=== PATIENT | female | born 1950 | race Caucasian/White ===

== ENCOUNTER 2020-02-04 00:07 | Inpatient (IN) | payer MEDICARE, MEDICAID, SELFPAY ==
[2020-02-04] VITALS (16 sets, daily range): BP systolic 107–137; BP diastolic 56–79; PULSE 76–118; RESP 10–22; TEMP 35.7–36.6; O2SAT 90–97; BMI 26.7
--- NOTE | 2020-02-04 00:37 | ECG_ITS ---
[facility] Test Date: 2020-02-04 Pat Name: Dee Ferreira Department: Room: 104 Gender: Female Teacher Instrumental: : 1950 Requested By: Brittany Hunt Order Number: [id number] Reading MD: BRITTANY GOODWIN Measurements Intervals [place] Rate: 86 P: VT: QRS: 74 QRSD: 93 T: -70 QT: 301 QTc: 362 Interpretive Statements SUPRAVENTRICULAR RHYTHM LOW QRS VOLTAGE IN EXTREMITY LEADS [QRS DEFLECTION < 0.5 mV IN LIMB LEADS] SEPTAL MYOCARDIAL INFARCTION [40+ ms Q WAVE IN V1/V2], PROBABLY OLD MODERATE T-WAVE ABNORMALITY, CONSIDER INFERIOR ISCHEMIA [-0.1+ mV T WAVE IN II/aVF] WARNING: DATA QUALITY MAY AFFECT INTERPRETATION No previous ECG available for comparison Electronically Signed On 02-04-2020 20:14:01 ARMHOLE PRESSER by BRITTANY GOODWIN [id number]
--- NOTE | 2020-02-04 00:48 | USCV_ITS ---
Dee Ferreira Age: 69 Gender: F : 1950 Exam Date: 02/04/2020 06:28 Ordering Phys: Brittany Hunt MD Technologist: Kim Stroud Exam Location: [facility] [place] Indication: Atrial fibrillation with RVR BP: 124 / 79 HR: 102 Rhythm: Sinus Technical Quality: Technically difficult study MEASUREMENTS (Male / Female) Normal Values 2D ECHO LV Diastolic Diameter PLAX 2.8 cm 4.2 - 5.9 / 3.9 - 5.3 cm LV Systolic Diameter PLAX 1.7 cm LV Chamber Size 3.3 cm IVS Diastolic Thickness 1.7 cm 0.6 - 1.0 / 0.6 - 0.9 cm IVS Systolic Thickness 1.3 cm LVPW Diastolic Thickness 1.2 cm 0.6 - 1.0 / 0.6 - 0.9 cm LVPW Systolic Thickness 2.1 cm RV Chamber Size 4.6 cm LVOT Diameter 2.0 cm LV Ejection Fraction 2D Teich 68.6 % LA Diameter 3.8 cm LA Width 3.6 cm LA Height 5.8 cm RA Width 3.3 cm RA Height 5.0 cm Aorta at Sinotubular Diameter 2.8 cm M-MODE LV Diastolic Diameter MM 3.3 cm 4.2 - 5.9 / 3.9 - 5.3 cm LV Systolic Diameter MM 2.0 cm LV Ejection Fraction MM Teich 71.3 % IVS Diastolic Thickness MM 1.1 cm 0.6 - 1.0 / 0.6 - 0.9 cm IVS Systolic Thickness MM 1.4 cm LVPW Diastolic Thickness MM 0.9 cm 0.6 - 1.0 / 0.6 - 0.9 cm LVPW Systolic Thickness MM 1.8 cm RV Diastolic Diameter MM 3.3 cm Aortic Annulus Diameter 2.7 cm LA Ao Ratio MM 1.9 MV E Point Septal Separation 0.7 cm DOPPLER AV Peak Velocity 117.7 cm/s LVOT Peak Velocity 63.0 cm/s AV Area Cont Eq vti 1.8 cm squared AV Area Cont Eq pk 1.7 cm squared MV Area PHT 5.0 cm squared MV E' Velocity 121.0 cm/s TR Peak Velocity 233.1 cm/s TR Peak Gradient 21.7 mmHg TR Mean Velocity 170.2 cm/s TR Mean Gradient 11.9 mmHg TR Velocity Time Integral 53.9 cm TV Peak E Velocity 77.0 cm/s Right Atrial Pressure 15.0 mmHg Pulmonary Artery Systolic Pressu 36.7 mmHg PV Peak Velocity 53.0 cm/s RV Acceleration Time 0.1 s RV Ejection Time 0.2 s RV AcT/ET 0.3 FINDINGS Left Ventricle Normal left ventricular cavity size. Normal left ventricular wall thickness. Normal left ventricular systolic function. Left ventricular ejection fraction is estimated at 55 %. Flattened septum in diastole consistent with right ventricle volume overload. In the presence of atrial fibrillation diastolic function cannot be assessed accurately. Right Ventricle Moderately increased right ventricular size. Moderately decreased right ventricular systolic function. Moderate pulmonary hypertension, PASP 50 mmHg. Right Atrium Moderately increased right atrial size. Left Atrium Moderately increased left atrial size. Mitral Valve Moderately thickened mitral valve. Moderate mitral annular calcification. No mitral valve stenosis. Moderate mitral valve regurgitation. Aortic Valve Severe aortic valve calcification. Moderate aortic valve stenosis, mean gradient 3.6 mmHg, TONI 1.8 no aortic valve regurgitation. cm squared. No aortic valve regurgitation. Tricuspid Valve Severe tricuspid valve regurgitation. Pulmonic Valve Moderate pulmonary valve regurgitation. Pericardium Normal pericardium without effusion. Aorta Normal ascending aorta dimension. CONCLUSIONS 1-Normal left ventricular cavity size. Normal left ventricular wall thickness. Normal left ventricular systolic function. Left ventricular ejection fraction is estimated at 55 %. Flattened septum in diastole consistent with right ventricle volume overload. In the presence of atrial fibrillation diastolic function cannot be assessed accurately. 2-Moderately increased right ventricular size. Moderately decreased right ventricular systolic function. Moderate pulmonary hypertension, PASP 50 mmHg. 3-Moderate biatrial enlargement 4-Moderately thickened mitral valve. Moderate mitral annular calcification. No mitral valve stenosis. Moderate mitral valve regurgitation. 5-Severe aortic valve calcification. Moderate aortic valve stenosis, mean gradient 3.6 mmHg, TONI 1.8 no aortic valve regurgitation. cm squared. No aortic valve regurgitation. 6-Severe tricuspid valve regurgitation. 7-Moderate pulmonary valve regurgitation. 8-There is no pericardial effusion. 9-Right atrial pressure is around 20 mm of mercury. 10-There are no prior echocardiogram studies to compare. Brittany Swan MD (Electronically Signed) Final Date: 04 February 2020 16:46 S
--- NOTE | 2020-02-04 00:48 | PM.HP ---
Providers/Chief Complaint Admitting Physician: Brittany Hunt MD History of Present Illness Dee Ferreira is a 69 year old female who carries history of chronic kidney disease stage V hemodialysis dependent Wednesday, diabetes, hypertension, presented to the hospital for chief complaint of shortness of breath. Patient went to [facility] for her complaints. Today she had 1-1/2-hour dialysis session. At care home her blood pressure was found to be in 70s, nurse and staff noticed coarse crackles on lung auscultation and sent her to the ER. In the emergency department she was given 1 L normal saline bolus which improved her blood pressure to 100 110 mmhg, she was found to have new onset A. fib RVR maximal heart rate 150, she was put on Cardizem drip after normal saline bolus which improved her heart rate to range of 70-80. She was tested positive for COVID-19. Hospital did not have isolated COVID-19 patient room hence she was transferred to our facility. Of note, patient is taking clonidine, lisinopril and Lasix, does not make urine. Lactic acid 2.0, reflex lactic acid 1.6 after fluid resuscitation EKG showed T wave inversion lead II, III, aVF patient did not complain of any chest pain White count 6 hemoglobin 10.6 Sodium 134 potassium 3.8 Creatinine 3 Blood glucose 160 BNP 854 Troponin T 0.17 COVID-19 positive Chest did not show pulmonary edema She was started on heparin drip for A. fib RVR UA did not show any pyuria Patient was evaluated on arrival, she was not complaining of any active chest pain or shortness of breath she was desaturating 88 to 89% on room air, she was put on 3 L nasal cannula which improved her oxygenation, her labs and chart were reviewed, patient is not a good historian I started her on Cardizem drip as her heart rate was fluctuating between 110s to 140, systolic blood pressure was 120mmhg No active complaint Heparin drip was turned off Review of Systems Const: Reports: chills and fatigue; Denies: fever(s) Eyes: Denies: change in vision ENMT: Denies: throat pain Card: Denies: chest pain Resp: Denies: dyspnea GI: Denies: abdominal pain : Denies: flank pain Musc: Reports: muscle cramps Skin/Breast: Reports: lesions Neuro: Reports: headache(s) Psych: Denies: anxiety Endo: Denies: polyuria Arnold/Lymph: Denies: easy bruising All/Imm: Denies: urticaria Medications/Allergies Allergies Allergy/AdvReac Type Severity Reaction Status Date / Time Penicillins Allergy ALGY-Anaphy Verified 02/04/20 00:50 laxis PFSH Acute PFSH: Medical History (Updated 02/04/20 @ 01:00 by Brittany Hunt MD) AV fistula COPD (chronic obstructive pulmonary disease) 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 Diabetes Dialysis patient End stage renal disease Hypertension Surgical History (Updated 02/04/20 @ 01:00 by Brittany Hunt MD) No pertinent past surgical history Family History (Updated 02/04/20 @ 01:00 by Brittany Hunt MD) Other Family history non-contributory Social History (Updated 02/04/20 @ 00:59 by Brittany Hunt MD) Smoking and tobacco status: current some day smoker Alcohol intake: never Substance/Drug Use: never Housing: [facility] Physical Exam Narrative: EXAM NARRATIVE: Obese female currently sitting in semi-Li position saturating 92% on 3 L nasal cannula systolic blood pressure 120 Has cushingoid appearance No active chest pain or respiratory distress Patient has hearing impairment Has facial flushing, Clinically looks fluid overloaded with bilateral lower extremity edema, 1+ Bibasilar crackles noted, no active wheezing, no acute respiratory distress S1, S2 variable no murmur appreciated Abdomen soft, distended bowel sound present Patient seems to be very drowsy Awake alert oriented x3 GCS 15 No neurological deficit Facial flushing noted Left arm fistula A&P Assessment and plan (1) COVID-19: Status: Acute (2) Acute respiratory failure with hypoxia: Status: Acute (3) New onset a-fib: Status: Acute Additional A&P Information Acute hypoxic resp failure secondary to COVID-19 pneumonia Start Decadron and remdesivir Currently doing well on 3 L nasal cannula saturating 92% Procalcitonin not high She is not septic Chest x-ray from the other facility did not report any consolidation Ventolin every 4 as needed New onset A. Fibrillation with acute RVR Heart rate 140s systolic blood pressure 120s, start Cardizem drip start Eliquis discontinue heparin Her BNP was 875, troponin T 0.17, will get baseline troponin here, EKG did not reveal any ischemic or infarctive change At home she is taking Lasix 80 mg, but patient is endorsing anuria Echo in the morning This most likely related to COVID-19 infection, check inflammatory markers End-stage renal disease Hemodialysis dependent Wednesday Current creatinine 3, no acute indication for dialysis, Kindly consult nephro on Wednesday Her hypotensive episode most likely was due to the effect of dialysis which improved with 1 L fluid resuscitation at the [place] [facility] her lactic acid improved as well from 2-1.6 Full code DVT prophylaxis not needed currently on Eliquis Renal diet Attestations Medical Necessity Statement*: She might get discharged in less than 48 hours currently need echo to see any wall motion abnormality for new onset A. fib RVR, requiring oxygen for COVID-19 pneumonia Time Spent in Patient Care: (>than 50% of time spent in counselling and/or direct pt care on unit). 50mins Coding Level of Care Code Acute Logistics Manager for Clarence Quinonez Diagnoses COVID-19 U07.1 Acute respiratory failure with hypoxia J96.01 New onset a-fib I48.91
[2020-02-04] MEDS: oxyCODONE 5 mg IR Tab/Cap PO ×2 (01:22→17:19)
[2020-02-04] MEDS: remdesivir 200 MG in sodium chloride 0.9% (100 ml) 100 ML 100 MG IV (01:22)
[2020-02-04] MEDS: albuterol 8 gm MDI 2 PUFF INHALATION ×3 (01:40→19:36)
--- NOTE | 2020-02-04 01:48 | PC.NURSE ---
Patient arrived to floor at 0010 via stretcher as direct admit from [facility]. Telemetry applied. Patient currently in afib with rate at 120s. Patient is Covid 19 positive. SpO2 at 78% on room air at arrival. Placed patient on 2L NC which increased SpO2 to 93-95%. Informed Dr Hunt of patient's arrival to the floor. Patient c/o headache and body aches. All medications administered as ordered. Patient is a dialysis patient with fistula in the left arm. Patient's last dialysis was 02/03/20 am. Patient requesting something eat which Jello was provided per patient choice.
[2020-02-04 01:52] LABS: Troponin T (5th) Once 177 ng/L (0-10)
[2020-02-04 01:59] LABS: Magnesium 2.1 mg/dL (1.7-2.3); Thyroid Stimulating Hormone 1.64 uIU/mL (0.27-4.20)
[2020-02-04 02:02] LABS: D Dimer 2.04 ug/mIFEU (0-0.59)
--- NOTE | 2020-02-04 04:05 | ECG_ITS ---
[facility] Test Date: 2020-02-04 Pat Name: Dee Ferreira Department: Room: 104 Gender: Female Missile Tracking Technician: : 1950 Requested By: Brittany Hunt Order Number: [id number] Reading MD: BRITTANY GOODWIN Measurements Intervals [place] Rate: 92 P: VT: QRS: 62 QRSD: 93 T: -67 QT: 381 QTc: 472 Interpretive Statements ATRIAL FIBRILLATION SEPTAL MYOCARDIAL INFARCTION [40+ ms Q WAVE IN V1/V2], OF INDETERMINATE AGE Compared to ECG 02/04/2020 01:51:23 Supraventricular rhythm no longer present T-wave abnormality no longer present Possible ischemia no longer present Myocardial infarct finding still present Electronically Signed On 02-04-2020 20:18:00 DIRECTOR OF HOSPITALITY by BRITTANY GOODWIN [email or web address] memorial [id number]
[2020-02-04 04:34] LABS: Basophils % 0.3 %; Eosinophils # 0.1 10^3/uL (0.0-0.8); Eosinophils % 1.2 %; Hematocrit 32.9 % (37.0-47.0); Hemoglobin 9.5 g/dL (11.5-15.3); Lymphocytes % 15.6 %; Mean Corpuscular HGB Conc 28.9 g/dL (30.0-36.0); Mean Corpuscular Volume 103.8 fL (81-99); Mean Platelet Volume 10.4 fL (7.4-10.4); Monocytes # 0.5 10^3/uL (0.2-0.9); Monocytes % 7.1 %; Neutrophils # 5.02 10^3/uL (1.8-7.7); Neutrophils % 75.3 %; Nucleated Red Blood Cells % 0 %; Platelet Count 111 10^3/cmm (130-400); Red Blood Count 3.17 10^6/uL (4.1-5.3); Red Cell Distribution Width 17.1 % (12.1-15.1); White Blood Count 6.7 10^3/uL (4.0-10.0)
[2020-02-04 05:13] LABS: Anion Gap 15.2 (5-19); Blood Urea Nitrogen 16 mg/dL (8-23); C Reactive Protein 17.8 mg/L (0.0-4.9); Calcium 7.7 mg/dL (8.5-10.5); Carbon Dioxide 27 mmol/L (22-29); Chloride 93 mmol/L (98-107); Glomerular Filtration Rate 14.4 mL/min (90-130); Glucose 87 mg/dL (65-115); Osmolality Calculated 273 mOsm/kg (285-295); Potassium 4.2 mmol/L (3.5-5.1); Sodium 131 mmol/L (136-145)
[2020-02-04 06:05] LABS: Troponin(5th) Baseline 182 ng/L (0-10)
[2020-02-04] MEDS: clopidogrel 300 mg Tablet PO (07:06)
[2020-02-04 07:28] LABS: Troponin 5 2HR Delta 0.7 ABS# (0-10)
--- NOTE | 2020-02-04 08:05 | ECG_ITS ---
[facility] Test Date: 2020-02-04 Pat Name: Dee Ferreira Department: Room: 104 Gender: Female Cake Wringer: : 1950 Requested By: Brittany Hunt Order Number: [id number] Reading MD: BRITTANY GOODWIN Measurements Intervals [place] Rate: 81 P: [place]: QRS: 65 QRSD: 98 T: 19 QT: 402 QTc: 467 Interpretive Statements ATRIAL FIBRILLATION MODERATE ST DEPRESSION [0.05+ mV ST DEPRESSION] Compared to ECG 02/04/2020 05:54:57 ST (T wave) deviation now present Myocardial infarct finding no longer present Electronically Signed On 02-04-2020 20:17:46 PLANT OPERATIONS WORKER by BRITTANY GOODWIN [id number]
[2020-02-04 08:09] LABS: Troponin 5 2HR 182.7 ng/L (0-10)
--- NOTE | 2020-02-04 08:15 | PC.NURSE ---
Call placed to Dr. Velasquez, who will be assuming care of patient today. I reported CTA has not been done as there is concern she will need dialysis immediately afterwards. Also reported that a consult to nephrology has not yet been ordered. Verified that Dr. Velasquez wanted me to initiate heparin infusion.
[2020-02-04] MEDS: dexamethasone 4 mg Tablet 6 MG PO ×2 (08:31→17:19)
[2020-02-04] MEDS: b-complex-vitamin c Tablet 1 EACH PO (08:31)
[2020-02-04] MEDS: aspirin 81 mg EC Tablet PO (08:32)
[2020-02-04] MEDS: sevelamer 800 mg Tablet PO ×2 (08:32→20:31)
[2020-02-04] MEDS: lisinopril 5 mg Tablet PO (08:32)
[2020-02-04] MEDS: heparin 5,000 unit/mL INJ 1 mL IV ×2 (08:34→23:37)
[2020-02-04] MEDS: heparin drip 25,000 UNIT/500 ML PREMIX 30.7 UNIT IV (08:45)
--- NOTE | 2020-02-04 10:00 | PC.NURSE ---
Received call from CT scan asking if we were going ahead with the CTA of the chest. I responded that we are waiting on Dr. Velasquez to see patient and will notify them of his decision.
--- NOTE | 2020-02-04 13:08 | PM.PN ---
Subjective Subjective: Interval history: 69-year-old female with a past medical history significant for hypertension, hyperlipidemia, anxiety, depression, gastroesophageal reflux disease, insulin-dependent diabetes mellitus, end-stage renal disease on dialysis via left arm fistula, and chronic obstructive pulmonary disease who was initially seen at [facility] with increasing shortness of breath. Symptoms at initially start dialysis on wednesday during which time she was only able to complete about 1.5hr due to hypotension. She was instructed to to go ER however had continued to refused until worsening respiratory distress upon return to [place] ( [facility]) Initial vital signs yesterday showed blood pressure of 90/46, heart rate of 129, respiratory rate of 18 and a temperature of 97.8 Laboratory workup showed a WBC of 6.0, hemoglobin of 10.6, hematocrit 32.9 and a platelet count of 120. sodium 134, potassium 3.8, chloride 96, bicarb 30, BUN 14 and creatinine of 3.0. AST of 20, ALT of 13 an alkaline phosphatase of 147. proBNP of 854. lactic acid of 2.0 -1.6.mg 2.0. Procalcitonin was 0.15. INR 1.6. Urinalysis showed trace leukocyte esterase, 3 to 4 wbc's and no bacteria. Chest x-ray was performed which showed low lung volumes, bronchovascular crowding due to low lung volumes, elevated right hemidiaphragm and cardiomegaly. CoV-19 Ag test was positive. While in ER she was noted to have newly found atrial fibrillation with rapid ventricular response for which she was started on cardizem gtt. She was placed on 2 L of O2 via nasal cannula. She was given a L bolus of normal saline prior to transfer to [facility]. Additionally was noted to have a troponin of 0.7. She was also started on heparin gtt. Repeat laboratory workup on arrival showed a WBC of 6.7, hemoglobin 9.5, hematocrit of 32.9 and a platelet count of 111. sodium 131, potassium 4.2, chloride 93, bicarb 27, BUN 16 and creatinine of 3.2. Initial troponin T baseline of 177 -> 182- > 182.7. D-dimer was also elevated at 2.04. Patient on transfer was also given aspirin 81 mg PO daily, Loaded with plavix 300 mg Po x 1, lipitor 80 mg PO daily, continued on cardizem gtt and heparin gtt. Additionally was started on decadron 6 mg PO daily and Remdesivir 200 mg IV x 1 followed by 100 mg IV daily x 4 days. Since arrival her respiratory status remained stable at 2L of o2 via NC. Did not have any report of chest pain. Home medication noted : Coreg 6.25 mg PO BID Clonidine 0.1 mg PO BID Lasix 80 mg Po daily Lisinopril 40 mg PO daily Medications: Reviewed: Yes Vitals/I&O/Wt Last Vital Signs Temp 96.3 F L 02/04/20 10:57 Pulse 88 02/04/20 10:57 Resp 13 02/04/20 10:57 BP 115/60 02/04/20 10:57 Pulse Ox 94 02/04/20 10:57 02/03/20 02/04/20 02/04/20 22:59 06:59 14:59 Intake Total 607.5 / 607.5 120 / 120 Balance 607.5 / 607.5 120 / 120 Weight last 48 hrs Weight 76.26 kg Weight 73 kg Weight 73 kg Physical Exam Narrative: EXAM NARRATIVE: General: Sleeping comfortably HEENT : Grossly unremarkable CVS: Atrial fib wih nvr CHEST : non-labored respiration ABD : Non-distended Ext ; B/l LE stasis dermatitis, fistula Data : 02/04/20 04:20 02/04/20 04:20 A&P Assessment and plan (1) New onset a-fib: Status: Acute (2) Acute respiratory failure with hypoxia: Status: Acute (3) COVID-19: Status: Acute (4) ESRD (end stage renal disease): Status: Acute (5) Thrombocytopenia: Status: Acute (6) Anemia of renal disease: Status: Acute (7) NSTEMI (non-ST elevated myocardial infarction): Status: Acute (8) D-dimer, elevated: Status: Acute (9) COPD (chronic obstructive pulmonary disease): Status: Acute (10) Immunosuppression due to chronic steroid use: Status: Acute Acute respiratory failure with hypoxemia - Etiology multi-factorial - Fluid vs COVID-19 vs COPD - Continue supplemental o2 as needed - Currently on 2L via NC- wean as tolerated - Chest x-ray - > Poor inspiratory effort, cardiomegaly however reported no infiltrative process or consolidation - D-dimer 2.04 - > CTA Chest PE protocol ordered - Will repeat Chest x-ray in AM - Bronchodilatory therapy as noted below COVID 19 infection - Afebrile, no sig changes on chest x-ray - CT chest pending - Started on Decadron 6 mg PO daily x 10 days however will increase to BID - Also started on Remdesivir 200 mg x 1 - > 100mg daily x 4 days - Will complete both treatment plan as pt is high risk for progression of disease - Batch testing - Droplet precautions Chronic obstructive pulmonary disease exacerbation - Steriod dependent - Supplemental 02 as noted above - Albuterol HFA 1-2 puff - Spiriva 18 mcg 2 puff inhaled daily - Symbicort 1 puff BID or formulary equivalent - On chronic prednisone 5 mg PO daily home ( on decadron here ) Non-ST elevation CT - Troponin 0.17 - Repeat 5th gen trop on arrival 177 - 182 -->> 182.7 ( 120 min ) - No reported chest pain - Possible type 2 due to rapid rate initially - Obtain ECHO - Aspirin 81 mg PO daily plus loaded with plavix 300 mg PO x 1. - Will hold off continuing plavix until cardiology eval - Continue high dose statin - Lipitor 80 mg PO qhs - Check lipid panel in am - Started on Heparin gtt ( Monitor plt as pt hs mild thrombocytopenia ) no prior episode of bleeding noted - Consult cardiology Newly diagnosed Atrial fibrillation with rapid ventricular response - Not noted in history - unclear if new or old dx - On cardizem gtt - Will Discontinue - Start Coreg 6.25 mg PO BID - On heparin gtt - will plan for Eliquis at discharge if no bleeding - ECHO pending - Cardiology consulted End stage renal disease on HD - Routine //Wed - Nephrology consulted - potassium stable - Will await recs on next plan hd tx - Renvela 800 mg PO TID meals Anemia of renal disease - Hb stable 9.5 - Epo per nephro Thrombocytopenia - Plt 111 - Repeat CBC in am - No prior h/o HIT - Monitor for bleeding Insulin-dependent diabetes mellitus - Diabetic/renal diet - Sliding scale insulin - Check a1c in am Hypertension - Coreg 6.35g PO BID ( hold prior to HD ) - Lisinopril 5 mg PO daily ( decrease from 40mg at NH) - Holding Clonidine 0.1 BID, Lasix 80 mg daily Hyperlipidemia - On lipitor 5 mg daily at home - now increased to high dose statin at 80 mg PO daily - F/u On lipid panel Neuropathy - Gabapentin 300 mg Po qhs Anxiety/depression - Zoloft 100 mg PO daily - Remeron 15 mg PO qhs GERD - Protonix 40 mg PO daily DVT ppx - On heparin gtt. Attestations Medical Necessity Statement*: Anticipate over 2 midnight stay for NSTEMI, New onset afib, COVID19, hypoxia on IV heparin, Cardizem gtt, o2. Time Spent in Patient Care: Greater than 35 minutes (>than 50% of time spent in counselling and/or direct pt care on unit). Coding Level of Care Code Acute Rn Admissions for g Fwd Diagnoses New onset a-fib I48.91 Acute respiratory failure with hypoxia J96.01 COVID-19 U07.1 ESRD (end stage renal disease) N18.6 Thrombocytopenia D69.6 Anemia of renal disease N18.9; D63.1 NSTEMI (non-ST elevated myocardial infarction) I21.4 D-dimer, elevated R79.89 COPD (chronic obstructive pulmonary disease) J44.9 Immunosuppression due to chronic steroid use Z79.52
--- NOTE | 2020-02-04 13:39 | P.CONIM_ITS ---
Providers/Reason For Consult Consulting Physican/Specialty*: Chantelle Amaro DO, telenephrology Reason for Consult*: ESRD Attending Physician: Dipti Velasquez History of Present Illness History of Present Illness Dee Ferreira is a 69 year old female presenting as direct admission from another hospital with CC shortness of breath. History was very difficult to obtain from patient. She is very hard of hearing. Lives in ECF, tested positive for COVID. Only had 90 dialysis yesterday due to hypotension. Normally dialyzed T/Th/S Review of Systems General: Reports: Other (unobtainable to to difficulty hearing) Meds/Allergies Home Medications and Allergies Home Medications Medication Instructions Recorded Confirmed Last Taken Type B complex-vitamin C-folic acid 1 tab PO BEDTIME 02/04/20 02/04/20 02/02/20 21:00 History [Viky-Alethea] albuterol sulfate [ProAir HFA] 2 puff INHALATION QID 02/04/20 02/04/20 Unknown History aspirin 81 mg PO DAILY 02/04/20 02/04/20 02/03/20 06:46 History atorvastatin 5 mg PO QPM 02/04/20 02/04/20 02/02/20 21:00 History budesonide-formoterol [Symbicort] 2 puff INHALATION BID 02/04/20 02/04/20 1 04/05/19 07:00 History carvedilol [Coreg] 6.25 mg PO BID 02/04/20 02/04/20 02/02/20 21:00 History clonazepam 1 mg PO BEDTIME 02/04/20 02/04/20 02/02/20 21:00 History clonidine HCl 0.1 mg PO BID 02/04/20 02/04/20 02/03/20 07:00 History furosemide 80 mg PO DAILY 02/04/20 02/04/20 02/03/20 06:48 History gabapentin [Neurontin] 300 mg PO BEDTIME 02/04/20 02/04/20 02/02/20 21:00 History guaifenesin [Mucinex] 600 mg PO BID 02/04/20 02/04/20 02/03/20 07:00 History hydrocodone-acetaminophen 1 tab PO Q6H PRN 02/04/20 02/04/20 Unknown History lisinopril 40 mg PO DAILY 02/04/20 02/04/20 02/03/20 06:48 History loperamide [Imodium] 2 mg PO Q6H PRN 02/04/20 02/04/20 Unknown History melatonin 5 mg PO BEDTIME 02/04/20 02/04/20 02/02/20 21:00 History mirtazapine [Remeron] 15 mg PO BEDTIME 02/04/20 02/04/20 02/02/20 21:00 History montelukast [Singulair] 10 mg PO BEDTIME 02/04/20 02/04/20 02/02/20 21:00 History omeprazole 40 mg PO DAILY 02/04/20 02/04/20 02/03/20 07:00 History prednisone 5 mg PO DAILY 02/04/20 02/04/20 02/03/20 07:00 History promethazine [Phenergan] 25 mg IM Q6H PRN 02/04/20 02/04/20 Unknown History sennosides-docusate sodium 1 tab-cap PO BID PRN 02/04/20 02/04/20 Unknown History [Senokot-S] sertraline [Zoloft] 100 mg PO DAILY 02/04/20 02/04/20 02/03/20 07:00 History sevelamer carbonate [Renvela] 1,600 mg PO TIDWM 02/04/20 02/04/20 02/03/20 08:00 History tiotropium bromide [Spiriva with 1 cap INHALATION DAILY 02/04/20 02/04/20 02/03/20 06:47 History HandiHaler] Allergies Allergy/AdvReac Type Severity Reaction Status Date / Time Penicillins Allergy ALGY-Anaphy Verified 02/04/20 00:50 laxis Current Medications Current Medications Generic Name Dose Route Start Last Admin Trade Name Freq PRN Reason Stop Dose Admin Albuterol Sulfate 2 puff 02/04/20 00:37 02/04/20 08:29 Albuterol 8 Gm Mdi INHALATION 2 puff Q4H.RESPIRATORY PRN Administration SHORTNESS OF BREATH Aspirin 81 mg 02/04/20 09:00 02/04/20 08:32 Aspirin 81 Mg Ec Tablet PO 81 mg DAILY JOO Administration Dexamethasone 6 mg 02/04/20 09:00 02/04/20 08:31 Dexamethasone 4 Mg Tablet PO 6 mg DAILY JOO Administration Heparin Sodium (Beef Lung) 0 unit 02/04/20 07:19 02/04/20 08:34 Heparin 5,000 Unit/Ml Inj 1 Ml IV 3,800 unit PRN PRN Administration Heparin weight-base protocol Protocol Diltiazem HCl 125 mg/ Sodium 125 mls @ 5 mls/hr 02/04/20 00:45 02/04/20 04:07 Chloride IV 5 mg/hr .Q24H JOO 5 mls/hr Infusion 5 MG/HR Heparin Sodium/Sodium Chloride 25,000 unit in 500 mls @ 0 mls/hr 02/04/20 07:30 02/04/20 08:45 Heparin Drip IV 21 unit/kg/hr .Q0M JOO 30.7 mls/hr Administration Protocol Per Protocol Lisinopril 5 mg 02/04/20 09:00 02/04/20 08:32 Lisinopril 5 Mg Tablet PO 5 mg DAILY JOO Administration Multivitamins 1 each 02/04/20 09:00 02/04/20 08:31 X-Uwnjqrd-Kqryonw C Tablet PO 1 each DAILY JOO Administration Oxycodone HCl 5 mg 02/04/20 00:46 02/04/20 01:22 Oxycodone 5 Mg Ir Tab/Cap PO 5 mg Q6H PRN Administration MODERATE PAIN Sevelamer Carbonate 800 mg 02/04/20 09:00 02/04/20 08:32 Sevelamer 800 Mg Tablet PO 800 mg TID JOO Administration PFSH Acute PFSH: Medical History AV fistula COPD (chronic obstructive pulmonary disease) 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 Diabetes Dialysis patient End stage renal disease Hypertension Surgical History No pertinent past surgical history Family History Other Family history non-contributory Social History Smoking and tobacco status: current some day smoker Alcohol intake: never Substance/Drug Use: never Housing: Intermediate Vitals/I&O/Wt Last Vital Signs Temp 96.3 F L 02/04/20 10:57 Pulse 88 12/13/20 10:57 Resp 13 02/04/20 10:57 BP 115/60 02/04/20 10:57 Pulse Ox 94 02/04/20 10:57 02/03/20 02/04/20 02/04/20 22:59 06:59 14:59 Intake Total 607.5 / 607.5 120 / 120 Balance 607.5 / 607.5 120 / 120 Weight last 48 hrs Weight 76.26 kg Weight 73 kg Weight 73 kg Physical Exam Const: COMMON NORMALS: no acute distress and alert Extremity: NARRATIVE EXTREMITY EXAM: left forearm loop graft, no redness, + thrill per RN GENERAL: Yes edema Neuro: SENSORIUM/ORIENTATION: Yes alert MOTOR EXAM: No no tremor noted A&P Additional A&P Information Impression: 1. ESRD 2. COVID + 3. NSTEMI, new onset atrial fibrillation 4. Anemia Recommend: Will plan for dialysis tomorrow. No IVs, BPs, blood draws left arm. Check LFTs, phosphorus. Monitor BS on decadron. Renal diet. Epogen at dialysis. Will follow with you. Coding Level of Care Code Acute Aluminum Boat Inspector for Clarence Quinonez
--- NOTE | 2020-02-04 13:50 | CTR_ITS ---
PROCEDURE INFORMATION: Exam: CT Angiography Chest With Contrast Exam date and time: 02/04/2020 2:21 PM Age: 69 years old Clinical indication: Abnormal findings; Abnormal diagnostic tests; Elevated d-dimer; Patient HX: Covid+ w elev d-dimer; Additional info: Rule out pulmonary embolism TECHNIQUE: Imaging protocol: Computed tomographic angiography of the chest with intravenous contrast. 3D rendering (Not supervised by radiologist): MIP and/or 3D reconstructed images were created by the technologist. Radiation optimization: All CT scans at this facility use at least one of these dose optimization techniques: automated exposure control; mA and/or kV adjustment per patient size (includes targeted exams where dose is matched to clinical indication); or iterative reconstruction. Contrast material: VISI 320; Contrast volume: 79 ml; Contrast route: INTRAVENOUS (IV); COMPARISON: No relevant prior studies available. RADIATION DOSE METRICS: Total DLP (mGy-cm): 557.12 FINDINGS: Pulmonary arteries: 40 mm main pulmonary artery which is considerably larger than the ascending aorta consistent with pulmonary artery hypertension. No pulmonary embolus or aortic dissection. Aorta: Unremarkable. No aortic aneurysm. No aortic dissection. Great vessels off aortic arch: Calcification of the thoracic aorta and/or great vessels consistent with atherosclerotic vessel disease. Lungs: Moderate centrilobular emphysema. Bilateral discoid atelectasis and/or scarring. Moderate left lower lobe pneumonia. Pleural space: Bilateral apical pleural and/or parenchymal scarring. Heart: Severe calcified coronary artery disease. Lymph nodes: Borderline to mild mediastinal adenopathy which could be reactive versus neoplastic. Kidneys and ureters: Moderate left renal atrophy. Small vessel arterial calcifications in the left renal hilum which is often associated with chronic renal failure. Intraperitoneal space: Mild four-quadrant ascites. Bones/joints: Unremarkable. No acute fracture. Soft tissues: Unremarkable. CT/CT angio chest PE protcl [id number] IMPRESSION: 1. Moderate centrilobular emphysema. 2. Moderate left lower lobe pneumonia. 3. Severe calcified coronary artery disease. 4. Mild four-quadrant ascites. 5. Moderate left renal atrophy. 6. Small vessel arterial calcifications in the left renal hilum which is often associated with chronic renal failure. 7. Borderline to mild mediastinal adenopathy which could be reactive versus neoplastic. 8. No pulmonary embolus or aortic dissection. Radiation Dose CTDIVOL = (mGy): DLP = 557.12 (mGy-cm)
[2020-02-04] MEDS: iodixanol 320 mg/mL 100mL Btl IV (15:00)
--- NOTE | 2020-02-04 15:22 | PM.CONSULT ---
Providers/Reason For Consult Consulting Physican/Specialty*: Cardiology Reason for Consult*: Non-STEMI, new onset of atrial fibrillation, pneumonia, sepsis, Covid positive Attending Physician: Dipti Velasquez History of Present Illness History of Present Illness Dee Ferreira is a 69 year old female past medical history significant for end-stage renal disease, congestive heart failure, hypertension presented with hypotension Covid and A. fib with RVR. Patient was given IV fluid which improve blood pressure. She was started on Cardizem through which heart rate was controlled. Abnormal cardiac markers were noted without significant chest pain, however there is lateral ST changes could be repolarization abnormality cannot rule out ischemia. Please note that patient is Covid positive therefore I have not examined the patient history and physical examination as per our medical reimbursement specialist notes. Review of Systems General: Reports: Other (unobtainable to to difficulty hearing) Const: Reports: chills and fatigue; Denies: fever(s) Eyes: Denies: change in vision ENMT: Denies: throat pain Card: Denies: chest pain Resp: Denies: dyspnea GI: Denies: abdominal pain : Denies: flank pain Musc: Reports: muscle cramps Skin/Breast: Reports: lesions Neuro: Reports: headache(s) Psych: Denies: anxiety Endo: Denies: polyuria Arnold/Lymph: Denies: easy bruising All/Imm: Denies: urticaria Meds/Allergies Home Medications and Allergies Home Medications Medication Instructions Recorded Confirmed Last Taken Type B complex-vitamin C-folic acid 1 tab PO BEDTIME 02/04/20 02/04/20 02/02/20 21:00 History [Viky-Alethea] albuterol sulfate [ProAir HFA] 2 puff INHALATION QID 02/04/20 02/04/20 Unknown History aspirin 81 mg PO DAILY 02/04/20 02/04/20 02/03/20 06:46 History atorvastatin 5 mg PO QPM 02/04/20 02/04/20 02/02/20 21:00 History budesonide-formoterol [Symbicort] 2 puff INHALATION BID 02/04/20 02/04/20 02/03/20 07:00 History carvedilol [Coreg] 6.25 mg PO BID 02/04/20 02/04/20 02/02/20 21:00 History clonazepam 1 mg PO BEDTIME 02/04/20 02/04/20 02/02/20 21:00 History clonidine HCl 0.1 mg PO BID 02/04/20 02/04/20 02/03/20 07:00 History furosemide 80 mg PO DAILY 02/04/20 02/04/20 02/03/20 06:48 History gabapentin [Neurontin] 300 mg PO BEDTIME 02/04/20 02/04/20 02/02/20 21:00 History guaifenesin [Mucinex] 600 mg PO BID 02/04/20 02/04/20 02/03/20 07:00 History hydrocodone-acetaminophen 1 tab PO Q6H PRN 02/04/20 02/04/20 Unknown History lisinopril 40 mg PO DAILY 02/04/20 02/04/20 02/03/20 06:48 History loperamide [Imodium] 2 mg PO Q6H PRN 02/04/20 02/04/20 Unknown History melatonin 5 mg PO BEDTIME 02/04/20 02/04/20 02/02/20 21:00 History mirtazapine [Remeron] 15 mg PO BEDTIME 02/04/20 02/04/20 02/02/20 21:00 History montelukast [Singulair] 10 mg PO BEDTIME 02/04/20 02/04/20 02/02/20 21:00 History omeprazole 40 mg PO DAILY 02/04/20 02/04/20 02/03/20 07:00 History prednisone 5 mg PO DAILY 02/04/20 02/04/20 02/03/20 07:00 History promethazine [Phenergan] 25 mg IM Q6H PRN 02/04/20 02/04/20 Unknown History sennosides-docusate sodium 1 tab-cap PO BID PRN 02/04/20 02/04/20 Unknown History [Senokot-S] sertraline [Zoloft] 100 mg PO DAILY 02/04/20 02/04/20 02/03/20 07:00 History sevelamer carbonate [Renvela] 1,600 mg PO TIDWM 02/04/20 02/04/20 02/03/20 08:00 History tiotropium bromide [Spiriva with 1 cap INHALATION DAILY 12/02/04/20 02/03/20 06:47 History HandiHaler] Allergies Allergy/AdvReac Type Severity Reaction Status Date / Time Penicillins Allergy ALGY-Anaphy Verified 02/04/20 00:50 laxis Current Medications Current Medications Generic Name Dose Route Start Last Admin Trade Name Freq PRN Reason Stop Dose Admin Albuterol Sulfate 2 puff 02/04/20 00:37 02/04/20 08:29 Albuterol 8 Gm Mdi INHALATION 2 puff Q4H.RESPIRATORY PRN Administration SHORTNESS OF BREATH Aspirin 81 mg 02/04/20 09:00 02/04/20 08:32 Aspirin 81 Mg Ec Tablet PO 81 mg DAILY JOO Administration Heparin Sodium (Beef Lung) 0 unit 02/04/20 07:19 02/04/20 08:34 Heparin 5,000 Unit/Ml Inj 1 Ml IV 3,800 unit PRN PRN Administration Heparin weight-base protocol Protocol Heparin Sodium/Sodium Chloride 25,000 unit in 500 mls @ 0 mls/hr 02/04/20 07:30 02/04/20 08:45 Heparin Drip IV 21 unit/kg/hr .Q0M JOO 30.7 mls/hr Administration Protocol Per Protocol Lisinopril 5 mg 02/04/20 09:00 02/04/20 08:32 Lisinopril 5 Mg Tablet PO 5 mg DAILY JOO Administration Multivitamins 1 each 02/04/20 09:00 02/04/20 08:31 B-Bgqsjrk-Cvyiqtz C Tablet PO 1 each DAILY JOO Administration Oxycodone HCl 5 mg 02/04/20 00:46 02/04/20 01:22 Oxycodone 5 Mg Ir Tab/Cap PO 5 mg Q6H PRN Administration MODERATE PAIN Sevelamer Carbonate 800 mg 02/04/20 09:00 02/04/20 08:32 Sevelamer 800 Mg Tablet PO 800 mg TID JOO Administration PFSH Acute PFSH: Medical History AV fistula COPD (chronic obstructive pulmonary disease) 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 Diabetes Dialysis patient End stage renal disease Hypertension Surgical History No pertinent past surgical history Family History Other Family history non-contributory Social History Smoking and tobacco status: current some day smoker Alcohol intake: never Substance/Drug Use: never Housing: Senior Care Vitals/I&O/Wt Last Vital Signs Temp 97.6 F 02/04/20 14:38 Pulse 107 H 02/04/20 14:38 Resp 16 02/04/20 14:38 BP 128/71 02/04/20 14:38 Pulse Ox 95 02/04/20 14:38 02/04/20 02/04/20 02/04/20 06:59 14:59 22:59 Intake Total 607.5 / 607.5 120 / 120 Balance 607.5 / 607.5 120 / 120 Weight last 48 hrs Weight 168 lb 2 oz Weight 160 lb 14.999 oz Weight 160 lb 14.999 oz Physical Exam Narrative: EXAM NARRATIVE: Please note that I have not examined the patient personally examination as per medicine A&P Assessment and plan (1) NSTEMI (non-ST elevated myocardial infarction): Patient has non-ST elevation RI. Patient has underlying coronary artery disease which during this time of stress has created supplied demand situation resulted in RI. Since patient is stable and Covid positive we will treat patient medically. Advised aspirin statin continue beta-yvette and anticoagulation. Advised adding isosorbide mononitrate to the regimen once blood pressure more stable. For now hold lisinopril and diuretics. Echocardiogram to assess LV function or any new wall motion abnormality. Status: Acute (2) New onset a-fib: Most likely due to sepsis pneumonia hypotension. Once resolved may improve for now continue rate control strategy Status: Acute (3) COVID-19: Continue as per medicine treatment Status: Acute (4) ESRD (end stage renal disease): Continue as per nephrology Status: Acute (5) Anemia of renal disease: As per medicine Status: Acute (6) D-dimer, elevated: CTA is negative for pulmonary embolism. Status: Acute Consult Attestations Medical Necessity Statement: Patient require continuation hospitalization for above defined care. Coding Level of Care Code New Pt Acute Metal Fabricating Inspector for [employer] Fwd Patient Type New History Comprehensive Exam Comprehensive Medical Decision Making High Complexity Diagnoses NSTEMI (non-ST elevated myocardial infarction) I21.4 New onset a-fib I48.91 COVID-19 U07.1 ESRD (end stage renal disease) N18.6 Anemia of renal disease N18.9; D63.1 D-dimer, elevated R79.89
[2020-02-04 15:46] LABS: Glucose Point of Care 180 mg/dL (70-110)
--- NOTE | 2020-02-04 16:00 | PC.NURSE ---
Multiple attempts to draw blood from patient for PTT and troponin by dairy lab technician and nurse.
[2020-02-04 16:25] LABS: Partial Thromboplastin Time 140.5 SECONDS (23.9-36.7)
[2020-02-04 16:47] LABS: Troponin 5 6HR Delta 7.1 ng/L (0-12)
[2020-02-04 16:48] LABS: Troponin 5 6HR 189.1 ng/L (0-10)
[2020-02-04 17:01] LABS: Hepatitis B Surface Antigen Non-Reactive (Nonreactive); Hepatitis C Virus Antibody Non-Reactive (Nonreactive)
[2020-02-04] MEDS: gabapentin 300 mg Capsule PO (17:18)
[2020-02-04] MEDS: carvedilol 6.25 mg Tablet PO (17:19)
[2020-02-04 20:23] LABS: Glucose Point of Care 244 mg/dL (70-110)
[2020-02-04] MEDS: mirtazapine 15 mg Tablet PO (20:31)
[2020-02-04] MEDS: atorvastatin 40 mg Tablet 80 MG PO (20:31)
[2020-02-04 23:15] LABS: Partial Thromboplastin Time 43.2 SECONDS (23.9-36.7)
--- NOTE | 2020-02-04 23:46 | PC.NURSE ---
heparin gtt increased from 16 mls/hr to 19 mls/hr per protocol, witnessed by Maggie Dowling RN
[2020-02-05] VITALS (12 sets, daily range): BP systolic 109–179; BP diastolic 64–104; PULSE 88–105; RESP 10–26; TEMP 35.9–36.6; O2SAT 91–99
[2020-02-05 04:50] LABS: Basophils % 0.2 %; Hematocrit 34.4 % (37.0-47.0); Hemoglobin 10.6 g/dL (11.5-15.3); Lymphocytes # 0.6 10^3/uL (0.8-4.8); Lymphocytes % 9.5 %; Mean Corpuscular HGB Conc 30.8 g/dL (30.0-36.0); Mean Corpuscular Hemoglobin 30.3 pg (28.0-34.0); Mean Corpuscular Volume 98.3 fL (81-99); Mean Platelet Volume 12.2 fL (7.4-10.4); Monocytes # 0.1 10^3/uL (0.2-0.9); Neutrophils # 5.25 10^3/uL (1.8-7.7); Neutrophils % 87.5 %; Nucleated Red Blood Cells % 0 %; Platelet Count 98 10^3/cmm (130-400); Red Cell Distribution Width 17.2 % (12.1-15.1)
[2020-02-05] MEDS: remdesivir 100 MG in sodium chloride 0.9% (100 ml) 100 ML IV (05:14)
[2020-02-05 05:25] LABS: Estmated Average Glucose 151; Hemoglobin A1C 6.9 % (4.0-6.0)
[2020-02-05] MEDS: sevelamer 800 mg Tablet PO ×3 (06:34→18:04)
[2020-02-05 06:45] LABS: Alanine Aminotransferase 7 U/L (0-33); Albumin Level 3.5 g/dL (3.5-5.2); Alkaline Phosphatase 150 IU/L (35-105); Aspartate Amino Transferase 14 U/L (0-32); Blood Urea Nitrogen 26 mg/dL (8-23); Calcium 8.4 mg/dL (8.5-10.5); Carbon Dioxide 25 mmol/L (22-29); Chloride 89 mmol/L (98-107); Chol HDL Ratio 2.36 mg/dL (0.0-4.40); Cholesterol 78 mg/dL (0-200); Globulin 1.9 g/dL (1.3-4.6); Glomerular Filtration Rate 11.1 mL/min (90-130); Glucose 181 mg/dL (65-115); HDL Cholesterol 33 mg/dL (60-100); Iron 32 ug/dL (37-145); LDL Cholesterol Calculated 34 mg/dL (50-129); LDL HDL Ratio 1.03 RATIO (0.00-3.22); Magnesium 2.2 mg/dL (1.7-2.3); Osmolality Calculated 279 mOsm/kg (285-295); Percent Saturation 14.9 % (20-50); Sodium 130 mmol/L (136-145); Total Bilirubin 0.6 mg/dL (0.15-1.2); Total Iron Binding Capacity 214 mcg/dl; Total Protein 5.4 g/dL (6.6-8.7); Triglycerides 55 mg/dL (0-150); Unsaturated Iron Binding 182 ug/dL (112-347)
[2020-02-05 06:47] LABS: Anion Gap 21.2 (5-19); Potassium 5.2 mmol/L (3.5-5.1)
[2020-02-05 06:49] LABS: Glucose Point of Care 201 mg/dL (70-110)
[2020-02-05 06:57] LABS: Ferritin 1612 ng/mL (15-150)
--- NOTE | 2020-02-05 07:00 | XR_ITS ---
WS: [id number] XR chest 1V portable [id number] REASON FOR EXAM: hypoxia FINDINGS: Coarse reticular change seen throughout both lungs, predominant on the right. More focal type lung opacity in the left lower lung which has been shown to be lung consolidation on CT scan of 02/04/2020. Moderately tortuous thoracic aorta and mild cardiomegaly. XR/XR chest 1V portable [id number] IMPRESSION: Probable acute pneumonitis superimposed on chronic underlying interstitial lung disease.
[2020-02-05] MEDS: albuterol 8 gm MDI 2 PUFF INHALATION ×2 (07:36→20:54)
--- NOTE | 2020-02-05 08:00 | PC.NURSE ---
called Lab for PTT timed at 6 am They said to give them 30 mins to check on it.
--- NOTE | 2020-02-05 08:44 | PC.NURSE ---
Hand-off report to maintenance mgr Hepa filter in room 108 for pt's scheduled dialysis today.
[2020-02-05 08:49] LABS: Partial Thromboplastin Time 114.1 SECONDS (23.9-36.7)
--- NOTE | 2020-02-05 09:27 | PC.CHAP ---
Pastoral Care Encounter/Spiritual Assessment Type of Contact [] Declined database report writer visit [] Patient/Family/Request visit [] Outpatient visit [] Follow-up visit [] Physician referral [] Code/Alert [] Routine visit [] Staff referral [] Actively dying [] Patient sleeping [] Family support [] [] Out of room [] Palliative care [] [] Receiving care in room [] Pre-surgical visit [] Trauma [] Long length of stay [] ICU visit [x] Other: isolated Relational/Emotional Strength [] Patient feels connected with others/family/visitors/staff [] Distress [] Loneliness/isolation [] Abandonment Spirituality of Patient [] Person of Asha [] Attends Religious of their Asha [] Believes in Prayer [] Reads Bible or Zoroastrianism materials [] There are Spiritual issues to be addressed Fire Services Plumber Interventions [x] Prayer [] Active listening [] Non-anxious presence [] Spiritual/emotional support [] Crisis/trauma care [] Spiritual counseling [] Bereavement support [] Provided bereavement packet [] Provided Bible/devotional materials [] Provided toy/stuffed animal, coloring book to patient or family member [] Provided Communion [] Anointing/[place] [] Salvation [x] Completed spiritual assessment [] Other: Impact on Illness or Injury [] Angry [] Fearful [] Anxious [] Often cries [] Exhaustion [] Unable to work [] Unable to attend rastafari [] Unable to walk/stand [] Unable to read [] Unable to drive [] Unable to eat/drink [] Unable to sleep [] Unable to be with family [] Patient intubated [] Other: Summary Time spent with patient
[2020-02-05] MEDS: sertraline 100 mg Tablet PO (10:33)
[2020-02-05] MEDS: aspirin 81 mg EC Tablet PO (10:33)
[2020-02-05] MEDS: b-complex-vitamin c Tablet 1 EACH PO (10:33)
[2020-02-05] MEDS: dexamethasone 4 mg Tablet 6 MG PO ×2 (10:34→18:00)
[2020-02-05] MEDS: pantoprazole DR 40 mg Tablet PO (10:34)
[2020-02-05 11:00] LABS: Glucose Point of Care 265 mg/dL (70-110)
--- NOTE | 2020-02-05 11:09 | PC.NURSE ---
To Hemodialysis room
[2020-02-05] MEDS: carvedilol 6.25 mg Tablet PO ×2 (15:50→21:04)
[2020-02-05] MEDS: lisinopril 5 mg Tablet PO (15:50)
--- NOTE | 2020-02-05 15:52 | PC.NURSE ---
Heparin paused prior to blood draw due to pt's heaprin IV access close to the site per Lab.
--- NOTE | 2020-02-05 16:25 | P.PN_ITS ---
Subjective Subjective: Interval history: had dialysis earlier today, breathing better Medications: Reviewed: Yes Vitals/I&O/Wt Last Vital Signs Temp 97.6 F 02/05/20 10:30 Pulse 97 02/05/20 14:41 Resp 22 H 02/05/20 14:41 BP 179/103 02/05/20 14:41 Pulse Ox 91 02/05/20 10:30 02/05/20 02/05/20 02/05/20 06:59 14:59 22:59 Intake Total 343.8 / 1449.818 240 / 240 83.3 / 323.3 Balance 343.8 / 1449.818 240 / 240 83.3 / 323.3 Weight last 48 hrs Weight 76.26 kg Weight 73 kg Weight 73 kg Data : 02/05/20 04:30 02/05/20 06:00 Other Labs: calcium 8.4, phos 5, TSAT 15%, SF 1612 CXR: Radiologist's impression: Coarse reticular change seen throughout both lungs, predominant on the right. More focal type lung opacity in the left lower lung which has been shown to be lung consolidation on CT scan of 02/04/2020. Moderately tortuous thoracic aorta and mild cardiomegaly A&P Additional A&P Information Impression: 1. ESRD 2. COVID + 3. NSTEMI, new onset atrial fibrillation 4. Anemia Recommend: Will dialyze aagin tomorrow, returning to her T// schedule. No IVs, BPs, blood draws left arm. Renal diet. Epogen at dialysis. Will follow with you. Attestations Medical Necessity Statement*: per primary service Time Spent in Patient Care: 16 - 35 minutes Coding Level of Care Code Acute Business Intelligence Architect for Clarence Quinonez
[2020-02-05 17:12] LABS: Glucose Point of Care 152 mg/dL (70-110)
--- NOTE | 2020-02-05 17:31 | PM.PN ---
Subjective Subjective: Interval history: Stable. Denies any complaint Medications: Reviewed: Yes Vitals/I&O/Wt Last Vital Signs Temp 97.6 F 02/05/20 10:30 Pulse 105 H 02/05/20 17:11 Resp 22 H 02/05/20 14:41 BP 143/101 02/05/20 17:11 Pulse Ox 93 02/05/20 17:11 02/05/20 02/05/20 02/05/20 06:59 14:59 22:59 Intake Total 343.8 / 1449.818 240 / 240 83.3 / 323.3 Balance 343.8 / 1449.818 240 / 240 83.3 / 323.3 Weight last 48 hrs Weight 168 lb 2 oz Weight 160 lb 14.999 oz Weight 160 lb 14.999 oz Physical Exam Narrative: EXAM NARRATIVE: Examination as per medical hospitalist service. Please note that I have not examined the patient due to Covid Data : 02/05/20 04:30 02/05/20 06:00 A&P Assessment and plan (1) NSTEMI (non-ST elevated myocardial infarction): Appear to be stable at this point. Continue medical management. Once Covid negative as an outpatient we will proceed with a left and right heart cath. Status: Acute (2) ESRD (end stage renal disease): Patient is going to have dialysis today Status: Acute (3) New onset a-fib: Stable. Continue current regimen Status: Acute (4) COVID-19: As per medicine Status: Acute (5) Pulmonary hypertension: Will add oxygen and isosorbide mononitrate, advise right and left heart cath upon recovery from Covid Status: Acute Attestations Medical Necessity Statement*: Patient require continuation hospitalization for above defined care Coding Level of Care Code Established Pt Acute Dynamics Ax Consultant for [employer]mond[employer] Fwd Patient Type Established History Detailed Exam Detailed Medical Decision Making Moderate Complexity Diagnoses NSTEMI (non-ST elevated myocardial infarction) I21.4 ESRD (end stage renal disease) N18.6 New onset a-fib I48.91 COVID-19 U07.1 Pulmonary hypertension I27.20
[2020-02-05 17:41] LABS: Partial Thromboplastin Time 38.2 SECONDS (23.9-36.7)
[2020-02-05] MEDS: isosorbide mononitrate ER 30 mg Tablet 15 MG PO (17:59)
[2020-02-05] MEDS: gabapentin 300 mg Capsule PO (18:04)
[2020-02-05] MEDS: heparin 5,000 unit/mL INJ 1 mL IV (18:24)
--- NOTE | 2020-02-05 18:39 | P.PN_ITS ---
Subjective Subjective: Interval history: 69-year-old female with a past medical history significant for hypertension, hyperlipidemia, anxiety, depression, gastroesophageal reflux disease, insulin-dependent diabetes mellitus, end-stage renal disease on dialysis via left arm fistula, and chronic obstructive pulmonary disease who was initially seen at [facility] with increasing shortness of breath. Symptoms at initially start dialysis on wednesday during which time she was only able to complete about 1.5hr due to hypotension. She was instructed to to go ER however had continued to refused until worsening respiratory distress upon return to [place] ( [facility]) Initial vital signs yest erday showed blood pressure of 90/46, heart rate of 129, respiratory rate of 18 and a temperature of 97.8 Laboratory workup showed a WBC of 6.0, hemoglobin of 10.6, hematocrit 32.9 and a platelet count of 120. sodium 134, potassium 3.8, chloride 96, bicarb 30, BUN 14 and creatinine of 3.0. AST of 20, ALT of 13 an alkaline phosphatase of 147. proBNP of 854. lactic acid of 2.0 -1.6.mg 2.0. Procalcitonin was 0.15. INR 1.6. Urinalysis showed trace leukocyte esterase, 3 to 4 wbc's and no bacteria. Chest x-ray was performed which showed low lung volumes, bronchovascular crowding due to low lung volumes, elevated right hemidiaphragm and cardiomegaly. CoV-19 Ag test was positive. While in ER she was noted to have newly found atrial fibrillation with rapid ventricular response for which she was started on cardizem gtt. She was placed on 2 L of O2 via nasal cannula. She was given a L bolus of normal saline prior to transfer to [facility]. Additionally was noted to have a troponin of 0.7. She was also started on heparin gtt. Repeat laboratory workup on arrival showed a WBC of 6.7, hemoglobin 9.5, hematocrit of 32.9 and a platelet count of 111. sodium 131, potassium 4.2, chloride 93, bicarb 27, BUN 16 and creatinine of 3.2. Initial troponin T baseline of 177 -> 182- > 182.7. D-dimer was also elevated at 2.04. Patient on transfer was also given aspirin 81 mg PO daily, Loaded with plavix 300 mg Po x 1, lipitor 80 mg PO daily, continued on cardizem gtt and heparin gtt. Additionally was started on decadron 6 mg PO daily and Remdesivir 200 mg IV x 1 followed by 100 mg IV daily x 4 days. Since arrival her respiratory status remained stable at 2L of o2 via NC. Did not have any report of chest pain. Home medication noted : Coreg 6.25 mg PO BID Clonidine 0.1 mg PO BID Lasix 80 mg Po daily Lisinopril 40 mg PO daily Subjective 02/04 Patient was taken for HD today. Tolerated well. No fever or chills overnight. Starting to become hypertensive, Was given am held dose of BP meds. Respiratory status remained stable. No chest pain. Remained in Atrial fibrillation. No evidence of bleeding. Medications: Reviewed: Yes Vitals/I&O/Wt Last Vital Signs Temp 97.6 F 02/05/20 10:30 Pulse 104 H 02/05/20 18:32 Resp 26 H 02/05/20 18:32 BP 151/104 02/05/20 18:32 Pulse Ox 97 02/05/20 18:32 02/05/20 02/05/20 02/05/20 06:59 14:59 22:59 Intake Total 343.8 / 1449.818 240 / 240 443.3 / 683.3 Balance 343.8 / 1449.818 240 / 240 443.3 / 683.3 Weight last 48 hrs Weight 76.26 kg Weight 73 kg Weight 73 kg Physical Exam Narrative: EXAM NARRATIVE: General: NAD on 2L via NC HEENT : Grossly unremarkable CVS: Atrial fib wih nvr CHEST : non-labored respiration ABD : Non-distended Ext ; B/l LE stasis dermatitis, fistula Data : 02/05/20 04:30 02/05/20 06:00 A&P Assessment and plan (1) New onset a-fib: Status: Acute (2) Acute respiratory failure with hypoxia: Status: Acute (3) COVID-19: Status: Acute (4) ESRD (end stage renal disease): Status: Acute (5) Thrombocytopenia: Status: Acute (6) Anemia of renal disease: Status: Acute (7) NSTEMI (non-ST elevated myocardial infarction): Status: Acute (8) D-dimer, elevated: Status: Acute (9) COPD (chronic obstructive pulmonary disease): Status: Acute (10) Immunosuppression due to chronic steroid use: Status: Acute Acute respiratory failure with hypoxemia - Etiology multi-factorial - Fluid vs COVID-19 vs COPD - Continue supplemental o2 as needed - Currently on 2L via NC- wean as tolerated - 02/03 Chest x-ray - > Poor inspiratory effort, cardiomegaly however reported no infiltrative process or consolidation - 02/04 -CXR -Probable acute pneumonitis superimposed on chronic underlying interstitial lung disease - D-dimer 2.04 - > CTA Chest PE protocol, No PE, mod emphysema, LLL pneumonia. - Will repeat Chest x-ray in AM - Bronchodilatory therapy as noted below COVID 19 Pneumonia - Afebrile, no sig changes on chest x-ray - CT chest noted above. - Continue Decadron 6 mg PO BID x 5 days then decrease to daily - Continue Remdesivir 200 mg x 1 - > 100mg daily x 4 days - Will complete both treatment plan as pt is high risk for progression of disease - Pro-calcitonin 0.15 - will monitor off abx - Batch testing - Droplet precautions Chronic obstructive pulmonary disease exacerbation - Steriod dependent prior to arrival - Supplemental 02 as noted above - Albuterol HFA 1-2 puff - Spiriva 18 mcg 2 puff inhaled daily - Symbicort 1 puff BID or formulary equivelent - On chronic prednisone 5 mg PO daily home ( on decadron here ) Non-ST elevation [place] - Troponin 0.17 - Repeat 5th gen trop on arrival 177 - 182 -->> 182.7 ( 120 min ) - No reported chest pain - Possibly type 2 due to RVR, COVID -19 - ECHO showed pEF - 55%, RV volume overload, Biatrial enlargement, Moderate TONI 1.8, Mod MR, Severe TR - Aspirin 81 mg PO daily - Plavix 300 mg PO x 1 on 02/03 - Will hold off continuing plavix - Lipitor 80 mg PO daily - decrease to 10 PO qhs ( on 5 mg po daily at home) See lipid panel below ( Low - mod intensity statin) - SConitnue on Heparin gtt ( Monitor plt as pt hs mild thrombocytopenia ) no prior episode of bleeding noted - Cardiology on board - plan for cadiac work up once stable from COVID-19 Newly diagnosed Atrial fibrillation with rapid ventricular response - Likely paroxysmal Afib based on ECHO findings - Coreg 6.25 mg PO BID ( Off Cardizem gtt ) - [id number] -5 HASBLED - 3 - On heparin gtt - will plan for Eliquis vs Coumadin at D/C - ECHO noted below - Cardiology consulted End stage renal disease on HD - w/ secondary hyperparathyroidism - K. 5.2, Na 130, P.5.0 - per nephro - Routine //Sat - Nephrology consulted - HD today - Renvela 800 mg PO TID meals Anemia of renal disease - Hb stable 9.5 - > 10.6 - Epo per nephro - Iron 32,TIBC 214, %sat low Ferritin 1612 - Labs suggestive of acute phase reaction Thrombocytopenia - Plt 111 - 98 - Repeat CBC in am - No prior h/o HIT - Monitor for bleeding while on heparin gtt, asa Insulin-dependent diabetes mellitus - Diabetic/renal diet - Sliding scale insulin - A1c of 6.9% Hypertension - Imdur 15 mg PO BID added - Coreg 6.35g PO BID ( hold prior to HD ) - Lisinopril 5 mg PO daily ( decrease from 40mg at NH) - Holding Clonidine 0.1 BID, Lasix 80 mg daily Hyperlipidemia - Lipitor decrease dose 10 mg PO Qhs - LDL goal < 55 due to ACS w/ DM - Total cholesterol 78, LDL of 34, HDL of 33. Neuropathy - Gabapentin 300 mg Po qhs Anxiety/depression - Zoloft 100 mg PO daily - Remeron 15 mg PO qhs - Klonopin 1 mg PO qhs GERD - Protonix 40 mg PO daily DVT ppx - On heparin gtt. Attestations Medical Necessity Statement*: Will require further hospitalization for management of covid 19 pneumonia hypoxia, copd, nstemi. Time Spent in Patient Care: Greater than 35 minutes (>than 50% of time spent in counselling and/or direct pt care on unit) . Coding Level of Care Code Acute Face Hardener for g Fwd Diagnoses New onset a-fib I48.91 Acute respiratory failure with hypoxia J96.01 COVID-19 U07.1 ESRD (end stage renal disease) N18.6 Thrombocytopenia D69.6 Anemia of renal disease N18.9; D63.1 NSTEMI (non-ST elevated myocardial infarction) I21.4 D-dimer, elevated R79.89 COPD (chronic obstructive pulmonary disease) J44.9 Immunosuppression due to chronic steroid use Z79.52
[2020-02-05] MEDS: mirtazapine 15 mg Tablet PO (20:53)
[2020-02-05] MEDS: CLONazepam 1 mg Tablet PO (20:53)
[2020-02-05] MEDS: atorvastatin 40 mg Tablet 20 MG PO (20:54)
[2020-02-05] MEDS: heparin drip 25,000 UNIT/500 ML PREMIX 17 UNIT IV (21:10)
[2020-02-05 21:14] LABS: Glucose Point of Care 143 mg/dL (70-110)
[2020-02-06] VITALS (17 sets, daily range): BP systolic 122–161; BP diastolic 67–100; PULSE 87–133; RESP 14–25; TEMP 36–37.1; O2SAT 95–100
[2020-02-06 04:08] LABS: Basophils % 0.1 %; Hemoglobin 10.8 g/dL (11.5-15.3); Lymphocytes # 0.6 10^3/uL (0.8-4.8); Lymphocytes % 6.5 %; Mean Corpuscular Hemoglobin 30.3 pg (28.0-34.0); Mean Corpuscular Volume 100.8 fL (81-99); Mean Platelet Volume 10.7 fL (7.4-10.4); Monocytes # 0.3 10^3/uL (0.2-0.9); Monocytes % 3.4 %; Neutrophils # 8.76 10^3/uL (1.8-7.7); Neutrophils % 89.5 %; Nucleated Red Blood Cells % 0 %; Platelet Count 122 10^3/cmm (130-400); Red Blood Count 3.57 10^6/uL (4.1-5.3); Red Cell Distribution Width 17.2 % (12.1-15.1); White Blood Count 9.8 10^3/uL (4.0-10.0)
[2020-02-06] MEDS: remdesivir 100 MG in sodium chloride 0.9% (100 ml) 100 ML IV (05:12)
[2020-02-06] MEDS: sevelamer 800 mg Tablet PO ×3 (06:44→17:35)
[2020-02-06 07:12] LABS: Glucose Point of Care 148 mg/dL (70-110)
--- NOTE | 2020-02-06 08:09 | PC.NURSE ---
lab called to let nurse know that blood was hemolyzed. dr Velasquez called and verbal order to stop heparin drip for 1 hour, then draw labs.
[2020-02-06] MEDS: b-complex-vitamin c Tablet 1 EACH PO (08:10)
[2020-02-06] MEDS: dexamethasone 4 mg Tablet 6 MG PO ×2 (08:10→17:35)
[2020-02-06] MEDS: sertraline 100 mg Tablet PO (08:10)
[2020-02-06] MEDS: lisinopril 5 mg Tablet PO (08:11)
[2020-02-06] MEDS: carvedilol 6.25 mg Tablet PO (08:11)
[2020-02-06] MEDS: isosorbide mononitrate ER 30 mg Tablet 15 MG PO ×2 (08:11→17:35)
[2020-02-06] MEDS: aspirin 81 mg EC Tablet PO (08:11)
[2020-02-06] MEDS: pantoprazole DR 40 mg Tablet PO (08:11)
--- NOTE | 2020-02-06 08:50 | PC.CHAP ---
Pastoral Care Encounter/Spiritual Assessment Type of Contact [] Declined fbi profiler visit [] Patient/Family/Request visit [] Outpatient visit [] Follow-up visit [] Physician referral [] Code/Alert [] Routine visit [] Staff referral [] Actively dying [] Patient sleeping [] Family support [] [] Out of room [] Palliative care [] [] Receiving care in room [] Pre-surgical visit [] Trauma [] Long length of stay [] ICU visit [] Other: isolation Relational/Emotional Strength [] Patient feels connected with others/family/visitors/staff [] Distress [] Loneliness/isolation [] Abandonment Spirituality of Patient [] Person of Asha [] Attends Yazdanism of their Asha [] Believes in Prayer [] Reads Bible or Rastafari materials [] There are Spiritual issues to be addressed Supervisor [employer] Inter[employer] [x] Prayer [] Active listening [] Non-anxious presence [] Spiritual/emotional support [] Crisis/trauma care [] Spiritual counseling [] Bereavement support [] Provided bereavement packet [] Provided Bible/devotional materials [] Provided toy/stuffed animal, coloring book to patient or family member [] Provided Communion [] Anointing/[place] [] Salvation [x] Completed spiritual assessment [] Other: Impact on Illness or Injury [] Angry [] Fearful [] Anxious [] Often cries [] Exhaustion [] Unable to work [] Unable to attend religious [] Unable to walk/stand [] Unable to read [] Unable to drive [] Unable to eat/drink [] Unable to sleep [] Unable to be with family [] Patient intubated [] Other: Summary Time spent with patient
[2020-02-06] MEDS: albuterol 8 gm MDI 2 PUFF INHALATION ×2 (09:10→19:36)
--- NOTE | 2020-02-06 09:35 | PC.NURSE ---
dr rodriguez called to notified him labs were being drawn, verbal order to restart heparin.
--- NOTE | 2020-02-06 10:22 | PC.NURSE ---
Notified Dr graham of patient labs hemolyzed again telephone instructions given to stop heparin drip
[2020-02-06 11:01] LABS: Glucose Point of Care 153 mg/dL (70-110)
[2020-02-06] MEDS: oxyCODONE 5 mg IR Tab/Cap PO (11:55)
--- NOTE | 2020-02-06 12:33 | P.PN_ITS ---
Subjective Subjective: Interval history: Subjective 02/04 Patient was taken for HD today. Tolerated well. No fever or chills overnight. Starting to become hypertensive, Was given am held dose of BP meds. Respiratory status remained stable. No chest pain. Remained in Atrial fibrillation. No evidence of bleeding. 02/05 No new clinical events overnight. patient was doing well. no chest pain. Seen in HD. Tolerating treatment. Stated she is wheelchair bound at baseline. No fever or chills. Medications: Reviewed: Yes Vitals/I&O/Wt Last Vital Signs Temp 96.8 F L 02/06/20 07:41 Pulse 100 02/06/20 10:39 Resp 16 02/06/20 11:55 BP 122/80 02/06/20 10:39 Pulse Ox 100 02/06/20 09:10 02/05/20 02/06/20 02/06/20 22:59 06:59 14:59 Intake Total 692.182 / 1032.182 209 / 1241.182 430.967 / 430.967 Balance 692.182 / 1032.182 209 / 1241.182 430.967 / 430.967 Weight last 48 hrs Weight 77.973 kg Weight 76.657 kg Physical Exam Narrative: EXAM NARRATIVE: General: NAD on 2L via NC in HD HEENT : Grossly unremarkable CVS: Atrial fib wih nvr CHEST : non-labored respiration ABD : Non-distended Ext ; B/l LE stasis dermatitis, fistula Data : 02/06/20 03:50 02/05/20 06:00 A&P Assessment and plan (1) New onset a-fib: Status: Acute (2) Acute respiratory failure with hypoxia: Status: Acute (3) COVID-19: Status: Acute (4) ESRD (end stage renal disease): Status: Acute (5) Thrombocytopenia: Status: Acute (6) Anemia of renal disease: Status: Acute (7) NSTEMI (non-ST elevated myocardial infarction): Status: Acute (8) D-dimer, elevated: Status: Acute (9) COPD (chronic obstructive pulmonary disease): Status: Acute (10) Immunosuppression due to chronic steroid use: Status: Acute Acute respiratory failure with hypoxemia - Etiology multi-factorial - Fluid vs COVID-19 vs COPD - Continue supplemental o2 as needed - Currently on 2L via NC- wean as tolerated - 02/03 Chest x-ray - > Poor inspiratory effort, cardiomegaly however reported no infiltrative process or consolidation - 02/04 -CXR -Probable acute pneumonitis superimposed on chronic underlying interstitial lung disease - D-dimer 2.04 - > CTA Chest PE protocol, No PE, mod emphysema, LLL pneumonia. - Cxr and ABG PRN - Bronchodilatory therapy as noted below COVID 19 Pneumonia - Afebrile, no sig changes on chest x-ray - CT chest noted above. - Continue Decadron 6 mg PO BID x 5 days ( 02/07) then daily x 5 day - > resume daily home prednisone - Continue Remdesivir 200 mg x 1 - > 100mg daily x 4 days ( Last dose on 02/07) - Will complete both treatment plan as pt is high risk for progression of disease - Pro-calcitonin 0.15 - will monitor off abx - Batch testing - Droplet precautions Chronic obstructive pulmonary disease exacerbation - Steroid dependent prior to arrival - Supplemental 02 as noted above - Albuterol HFA 1-2 puff - Spiriva 18 mcg 2 puff inhaled daily - Symbicort 1 puff BID or formulary equivalent - On chronic prednisone 5 mg PO daily home ( on Decadron here ) Non-ST elevation [place] - Troponin 0.17 - Repeat 5th gen trop on arrival 177 - 182 -->> 182.7 ( 120 min ) - No reported chest pain - Possibly type 2 due to RVR, COVID -19 - ECHO showed pEF - 55%, RV volume overload, Bi-atrial enlargement, Moderate TONI 1.8, Mod MR, Severe TR - Aspirin 81 mg PO daily - Plavix 300 mg PO x 1 on 02/03 - Will hold off continuing plavix - Lipitor 80 mg PO daily - decrease to 10 PO qhs ( on 5 mg po daily at home) See lipid panel below ( Low - mod intensity statin) - Imdur 15 mg PO BID added - Coreg 6.25 mg PO BID - Discontinue heparin gtt - Cardiology on board - plan for cardiac work up once stable from COVID-19 Newly diagnosed Atrial fibrillation with rapid ventricular response - Likely paroxysmal Afib based on ECHO findings - Coreg 6.25 mg PO BID ( Off Cardizem gtt ) - [id number] -5 HASBLED - 3 - D/C heparin gtt - Started on Eliquis 5 mg PO BID - ECHO noted above - Cardiology consulted End stage renal disease on HD - w/ secondary hyperparathyroidism - Electrolyte management per nephro - Routine //Sat - HD 02/04 - 02/05 ( 2.5L ) - Nephrology consulted - EPO - Renvela 800 mg PO TID meals Anemia of renal disease - Hb stable 9.5 - > 10.6- 10.8 - Epo per nephro - Iron 32,TIBC 214, %sat low Ferritin 1612 - Labs suggestive of acute phase reaction Thrombocytopenia - Plt 111 - 98 - 108 - Repeat CBC in am - No prior h/o HIT - Monitor for bleeding Insulin-dependent diabetes mellitus - Diabetic/renal diet - Sliding scale insulin - A1c of 6.9% Hypertension - Imdur 15 mg PO BID - Coreg 6.35g PO BID ( hold prior to HD ) - Lisinopril 5 mg PO daily ( decrease from 40mg at NH) - Holding Clonidine 0.1 BID, Lasix 80 mg daily - Continue to titrate Hyperlipidemia - Lipitor decrease dose 10 mg PO Qhs - LDL goal < 55 due to ACS w/ DM - Total cholesterol 78, LDL of 34, HDL of 33. Neuropathy - Gabapentin 300 mg Po qhs Anxiety/depression - Zoloft 100 mg PO daily - Remeron 15 mg PO qhs - Klonopin 1 mg PO qhs GERD - Protonix 40 mg PO daily DVT ppx f - Eliquis 5 mg PO BID Disposition: Will likely return to [facility] once completion of last dose of remdesivir on 02/07 Attestations Medical Necessity Statement*: Will continue to hospitalization for completion of remdisivir on 02/07. Time Spent in Patient Care: Greater than 35 minutes (>than 50% of time spent in counselling and/or direct pt care on unit) . Coding Level of Care Code Acute Coach Professional Athletes for Chg Fwd Diagnoses New onset a-fib I48.91 Acute respiratory failure with hypoxia J96.01 COVID-19 U07.1 ESRD (end stage renal disease) N18.6 Thrombocytopenia D69.6 Anemia of renal disease N18.9; D63.1 NSTEMI (non-ST elevated myocardial infarction) I21.4 D-dimer, elevated R79.89 COPD (chronic obstructive pulmonary disease) J44.9 Immunosuppression due to chronic steroid use Z79.52
--- NOTE | 2020-02-06 13:13 | P.PN_ITS ---
Subjective Subjective: Interval history: breathing better Medications: Reviewed: Yes Vitals/I&O/Wt Last Vital Signs Temp 96.8 F L 02/06/20 07:41 Pulse 100 02/06/20 10:39 Resp 16 02/06/20 11:55 BP 122/80 02/06/20 10:39 Pulse Ox 100 02/06/20 09:10 02/05/20 02/06/20 02/06/20 22:59 06:59 14:59 Intake Total 692.182 / 1032.182 209 / 1241.182 430.967 / 430.967 Balance 692.182 / 1032.182 209 / 1241.182 430.967 / 430.967 Weight last 48 hrs Weight 77.973 kg Weight 76.657 kg Data : 02/06/20 03:50 02/05/20 06:00 A&P Additional A&P Information Impression: 1. ESRD, s/p HD today and yesterday, total UF about 5 liters 2. COVID + 3. NSTEMI, new onset atrial fibrillation 4. Anemia Recommend: Continue HD T/Th/S. No IVs, BPs, blood draws left arm. Renal diet. Epogen at dialysis. Will follow with you. Attestations Medical Necessity Statement*: per primary service Time Spent in Patient Care: 16 - 35 minutes Coding Level of Care Code Acute Radial Arm Saw Operator for Clarence Quinonez
[2020-02-06 16:39] LABS: Glucose Point of Care 190 mg/dL (70-110)
--- NOTE | 2020-02-06 17:08 | P.PN_ITS ---
Subjective Subjective: Interval history: No changes per MEDICAL BILLING CLERK Medications: Reviewed: Yes Vitals/I&O/Wt Last Vital Signs Temp 98.7 F 02/06/20 16:00 Pulse 117 H 02/06/20 16:00 Resp 15 02/06/20 16:00 BP 138/100 02/06/20 16:00 Pulse Ox 95 02/06/20 16:00 02/06/20 02/06/20 02/06/20 06:59 14:59 22:59 Intake Total 209 / 1241.182 670.967 / 670.967 Balance 209 / 1241.182 670.967 / 670.967 Weight last 48 hrs Weight 77.973 kg Weight 76.657 kg Data : 02/07/20 04:00 02/07/20 06:13 A&P Additional A&P Information Impression: 1. ESRD, s/p HD Wednesday and Wednesday, total UF about 5 liters 2. COVID + 3. NSTEMI, new onset atrial fibrillation 4. Anemia Recommend: Continue HD T//S. No IVs, BPs, blood draws left arm. Renal diet. Epogen at dialysis. Will follow with you. Attestations Medical Necessity Statement*: per primary service Time Spent in Patient Care: less than 15 minutes Coding Level of Care Code Acute Retail Customer Service Representative for Clarence Quinonez
[2020-02-06] MEDS: apixaban 5 mg Tablet PO (17:35)
[2020-02-06] MEDS: gabapentin 300 mg Capsule PO (17:35)
[2020-02-06] MEDS: carvedilol 12.5 mg Tablet PO (17:35)
--- NOTE | 2020-02-06 18:16 | PC.NURSE ---
Pt transferred from CSU to VICU via wheelchair and accompanied by RN. Pt on 2L NC. Pt connected to monitor. VSS. Pt is placed on 2L NC. Pt is alert and oriented x4. FAITH. Follows commands. GCS: 15. Severe generalized weakness. Two assist to put patient in bed from wheelchair. BLE 3+ pitting edema. Pt is course with expiratory wheeze. Abdomen is round, soft, and non-tender with normoactive bowel sounds. Pt's skin is intact/dry/clean. No wounds noted. 2 R wrist IV's intact. Will continue to monitor the pt.
--- NOTE | 2020-02-06 18:20 | P.PN_ITS ---
Subjective Subjective: Interval history: Blood pressure is not well controlled denies any complaint post dialysis now. Medications: Reviewed: Yes Vitals/I&O/Wt Last Vital Signs Temp 98.7 F 02/06/20 16:00 Pulse 100 02/06/20 18:00 Resp 25 H 02/06/20 18:00 BP 161/98 02/06/20 18:00 Pulse Ox 99 02/06/20 18:00 02/06/20 02/06/20 02/06/20 06:59 14:59 22:59 Intake Total 209 / 1241.182 670.967 / 670.967 Balance 209 / 1241.182 670.967 / 670.967 Weight last 48 hrs Weight 171 lb 14.4 oz Weight 169 lb Physical Exam Narrative: EXAM NARRATIVE: Examination as per medical hospitalist service. Please note that I have not examined the patient due to Covid Data : 02/06/20 03:50 02/05/20 06:00 A&P Assessment and plan (1) NSTEMI (non-ST elevated myocardial infarction): Continue current regimen, continue to optimize beta-yvette we will proceed with left heart cath once recovered from Covid Status: Acute (2) ESRD (end stage renal disease): Continue dialysis Status: Acute (3) New onset a-fib: Stable. Continue current regimen. We will switch patient to oral anticoagulant. Status: Acute (4) COVID-19: As per medicine Status: Acute (5) Pulmonary hypertension: Will add oxygen and isosorbide mononitrate, advise right and left heart cath upon recovery from Covid Status: Acute (6) Hypertension: Not well controlled I will increase Coreg to 12.5 mg twice daily. Status: Inactive Attestations Medical Necessity Statement*: Patient require continuation hospitalization for above defined care Coding Level of Care Code Established Pt Acute Business Info Consultant for Desmond[employer] Fwd Patient Type Established History Detailed Exam Detailed Medical Decision Making Moderate Complexity Diagnoses NSTEMI (non-ST elevated myocardial infarction) I21.4 ESRD (end stage renal disease) N18.6 New onset a-fib I48.91 COVID-19 U07.1 Pulmonary hypertension I27.20 Hypertension I10
--- NOTE | 2020-02-06 18:31 | PC.NURSE ---
report called to ray in VICU. patient was then transferred via wheelchair with belongings. Belongings placed at bedside in VICU, nurses assisted patient to bed from the wheelchair.
[2020-02-06 19:55] LABS: Alanine Aminotransferase 9 U/L (0-33); Albumin Level 3.6 g/dL (3.5-5.2); Alkaline Phosphatase 142 IU/L (35-105); Aspartate Amino Transferase 13 U/L (0-32); Blood Urea Nitrogen 15 mg/dL (8-23); Calcium 8.6 mg/dL (8.5-10.5); Carbon Dioxide 29 mmol/L (22-29); Chloride 94 mmol/L (98-107); Globulin 2.2 g/dL (1.3-4.6); Glucose 251 mg/dL (65-115); Osmolality Calculated 287 mOsm/kg (285-295); Sodium 134 mmol/L (136-145); Total Bilirubin 0.7 mg/dL (0.15-1.2); Total Protein 5.8 g/dL (6.6-8.7)
[2020-02-06 19:57] LABS: Anion Gap 15.1 (5-19); Potassium 4.1 mmol/L (3.5-5.1)
[2020-02-06 20:42] LABS: Glucose Point of Care 190 mg/dL (70-110)
[2020-02-06] MEDS: mirtazapine 15 mg Tablet PO (21:20)
[2020-02-06] MEDS: atorvastatin 40 mg Tablet 20 MG PO (21:20)
[2020-02-06] MEDS: CLONazepam 1 mg Tablet PO (21:20)
[2020-02-07] VITALS (29 sets, daily range): BP systolic 89–178; BP diastolic 62–107; PULSE 74–138; RESP 9–42; TEMP 36.6–37.8; O2SAT 91–100
[2020-02-07] MEDS: remdesivir 100 MG in sodium chloride 0.9% (100 ml) 100 ML IV (05:22)
[2020-02-07 06:28] LABS: Basophils % 0.1 %; Hematocrit 37.4 % (37.0-47.0); Hemoglobin 10.9 g/dL (11.5-15.3); Lymphocytes % 9.4 %; Mean Corpuscular HGB Conc 29.1 g/dL (30.0-36.0); Mean Corpuscular Hemoglobin 30.2 pg (28.0-34.0); Mean Corpuscular Volume 103.6 fL (81-99); Mean Platelet Volume 11.3 fL (7.4-10.4); Monocytes # 0.5 10^3/uL (0.2-0.9); Monocytes % 5.3 %; Neutrophils # 8.55 10^3/uL (1.8-7.7); Neutrophils % 84.8 %; Nucleated Red Blood Cells % 0 %; Platelet Count 112 10^3/cmm (130-400); Red Blood Count 3.61 10^6/uL (4.1-5.3); Red Cell Distribution Width 17.2 % (12.1-15.1); White Blood Count 10.1 10^3/uL (4.0-10.0)
[2020-02-07 07:01] LABS: Glucose Point of Care 122 mg/dL (70-110)
[2020-02-07 07:17] LABS: Alanine Aminotransferase < 5 U/L (0-33); Albumin Level 2.8 g/dL (3.5-5.2); Alkaline Phosphatase 92 IU/L (35-105); Anion Gap 13.5 (5-19); Aspartate Amino Transferase 8 U/L (0-32); Blood Urea Nitrogen 15 mg/dL (8-23); Calcium 6.9 mg/dL (8.5-10.5); Carbon Dioxide 27 mmol/L (22-29); Chloride 100 mmol/L (98-107); Globulin 1.6 g/dL (1.3-4.6); Glucose 103 mg/dL (65-115); Osmolality Calculated 285 mOsm/kg (285-295); Potassium 3.5 mmol/L (3.5-5.1); Sodium 137 mmol/L (136-145); Total Bilirubin 0.5 mg/dL (0.15-1.2); Total Protein 4.4 g/dL (6.6-8.7)
[2020-02-07] MEDS: sevelamer 800 mg Tablet PO ×3 (07:43→16:56)
[2020-02-07] MEDS: albuterol 8 gm MDI 2 PUFF INHALATION ×2 (08:13→20:26)
[2020-02-07] MEDS: pantoprazole DR 40 mg Tablet PO (08:16)
[2020-02-07] MEDS: apixaban 5 mg Tablet PO ×2 (08:16→17:00)
[2020-02-07] MEDS: aspirin 81 mg EC Tablet PO (08:16)
[2020-02-07] MEDS: dexamethasone 4 mg Tablet 6 MG PO ×2 (08:16→17:00)
[2020-02-07] MEDS: isosorbide mononitrate ER 30 mg Tablet 15 MG PO ×2 (08:59→17:01)
[2020-02-07] MEDS: carvedilol 12.5 mg Tablet PO ×3 (09:00→17:02)
[2020-02-07] MEDS: b-complex-vitamin c Tablet 1 EACH PO (09:00)
[2020-02-07] MEDS: lisinopril 5 mg Tablet PO (09:00)
[2020-02-07] MEDS: sertraline 100 mg Tablet PO (09:00)
--- NOTE | 2020-02-07 09:14 | P.PN_ITS ---
Subjective Subjective: Interval history: Patient reports having pain all over which appears to be chronic for many years but recently exacerbated. She saturating 95% on 2 L. She denies substernal chest or abdominal pain. She had previous history of 2 coronary stents placed in [address] shows left lower lobe pneumonia. She was tested positive for COVID-19. She continues to smoke 8 cigarettes/day. At nursing facility she is able to transfer herself to wheelchair but otherwise does not walk much. Medications: Reviewed: Yes Vitals/I&O/Wt Last Vital Signs Temp 97.9 F 02/07/20 04:00 Pulse 105 H 02/07/20 08:14 Resp 18 02/07/20 08:14 BP 178/91 02/07/20 04:00 Pulse Ox 95 02/07/20 08:14 02/06/20 02/07/20 02/07/20 22:59 06:59 14:59 Intake Total 250 / 920.967 90 / 1010.967 Balance 250 / 920.967 90 / 1010.967 Weight last 48 hrs Weight 78.018 kg Weight 77.973 kg Weight 76.657 kg Physical Exam Const: COMMON NORMALS: no acute distress and patient oriented x3 Resp: COMMON NORMALS: normal respiratory effort OTHER: Coarse breath sounds throughout. Cardio: COMMON NORMALS: regular rate, regular rhythm and S2 normal heart sound present RATE: regular rate RHYTHM: regular rhythm HEART SOUNDS: S2 n ormal heart sound present OTHER: Trace lower extremity edema GI: COMMON NORMALS: Normal to inspection, nondistended, normoactive bowel sounds present, Soft to palpation and non-tender PALPATION: Yes Soft to palpation Neuro: COMMON NORMALS: patient oriented x3 and no focal motor deficits Data : 02/07/20 04:00 02/07/20 06:13 A&P Assessment and plan (1) New onset a-fib: Status: Acute (2) Acute respiratory failure with hypoxia: Status: Acute (3) COVID-19: Status: Acute (4) ESRD (end stage renal disease): Status: Acute (5) Thrombocytopenia: Status: Acute (6) Anemia of renal disease: Status: Acute (7) NSTEMI (non-ST elevated myocardial infarction): Status: Acute (8) D-dimer, elevated: Status: Acute (9) COPD (chronic obstructive pulmonary disease): Status: Acute (10) Immunosuppression due to chronic steroid use: Status: Acute (11) Community acquired pneumonia: Status: Acute Acute respiratory failure with hypoxemia - Etiology multi-factorial - Fluid vs COVID-19 vs COPD - Continue supplemental o2 as needed - Currently on 2L via NC- wean as tolerated - 02/03 Chest x-ray - > Poor inspiratory effort, cardiomegaly however reported no infiltrative process or consolidation - 02/04 -CXR -Probable acute pneumonitis superimposed on chronic underlying interstitial lung disease - D-dimer 2.04 - > CTA Chest PE protocol, No PE, mod emphysema, LLL pneumonia. - Cxr and ABG PRN - Bronchodilatory therapy as noted below COVID 19 Pneumonia - Afebrile, no sig changes on chest x-ray - CT chest noted above. - Continue Decadron 6 mg PO BID x 5 days ( 02/07) then daily x 5 day - > resume daily home prednisone - Continue Remdesivir 200 mg x 1 - > 100mg daily x 4 days ( Last dose on 02/07) - Will complete both treatment plan as pt is high risk for progression of disease - Pro-calcitonin 0.15 - will monitor off abx - Batch testing - Droplet precautions Chronic obstructive pulmonary disease exacerbation - Steroid dependent prior to arrival - Supplemental 02 as noted above - Albuterol HFA 1-2 puff - Spiriva 18 mcg 2 puff inhaled daily - Symbicort 1 puff BID or formulary equivalent - On chronic prednisone 5 mg PO daily home ( on Decadron here ) Non-ST elevation [place] - Troponin 0.17 - Repeat 5th gen trop on arrival 177 - 182 -->> 182.7 ( 120 min ) - No reported chest pain - Possibly type 2 due to RVR, COVID -19 - ECHO showed pEF - 55%, RV volume overload, Bi-atrial enlargement, Moderate TONI 1.8, Mod MR, Severe TR - Aspirin 81 mg PO daily - Plavix 300 mg PO x 1 on 02/03 - Will hold off continuing plavix - Lipitor 80 mg PO daily - decrease to 10 PO qhs ( on 5 mg po daily at home) See lipid panel below ( Low - mod intensity statin) - Imdur 15 mg PO BID added - Coreg 6.25 mg PO BID - Discontinue heparin gtt - Cardiology on board - plan for cardiac work up once stable from COVID-19 Newly diagnosed Atrial fibrillation with rapid ventricular response - Likely paroxysmal Afib based on ECHO findings - Coreg 6.25 mg PO BID ( Off Cardizem gtt ) - [id number] -5 HASBLED - 3 - D/C heparin gtt - Started on Eliquis 5 mg PO BID - ECHO noted above - Cardiology consulted End stage renal disease on HD - w/ secondary hyperparathyroidism - Electrolyte management per nephro - Routine //Sat - HD 02/04 - 02/05 ( 2.5L ) - Nephrology consulted - EPO - Renvela 800 mg PO TID meals Anemia of renal disease - Hb stable 9.5 - > 10.6- 10.8 - Epo per nephro - Iron 32,TIBC 214, %sat low Ferritin 1612 - Labs suggestive of acute phase reaction Thrombocytopenia - Plt 111 - 98 - 108 - Repeat CBC in am - No prior h/o HIT - Monitor for bleeding Insulin-dependent diabetes mellitus - Diabetic/renal diet - Sliding scale insulin - A1c of 6.9% Hypertension - Imdur 15 mg PO BID - Coreg 6.35g PO BID ( hold prior to HD ) - Lisinopril 5 mg PO daily ( decrease from 40mg at NH) - Holding Clonidine 0.1 BID, Lasix 80 mg daily - Continue to titrate Hyperlipidemia - Lipitor decrease dose 10 mg PO Qhs - LDL goal < 55 due to ACS w/ DM - Total cholesterol 78, LDL of 34, HDL of 33. Neuropathy - Gabapentin 300 mg Po qhs Anxiety/depression - Zoloft 100 mg PO daily - Remeron 15 mg PO qhs - Klonopin 1 mg PO qhs GERD - Protonix 40 mg PO daily DVT ppx f - Eliquis 5 mg PO BID Disposition: Will likely return to [facility] once completion of last dose of remdesivir on 02/07 PLAN: Additional A&P Information Acute hypoxic resp failure secondary to COVID-19 pneumonia Start Decadron and remdesivir Currently doing well on 3 L nasal cannula saturating 92% Procalcitonin not high She is not septic Chest x-ray from the other facility did not report any consolidation Ventolin every 4 as needed New onset A. Fibrillation with acute RVR Heart rate 140s systolic blood pressure 120s, start Cardizem drip start Eliquis discontinue heparin Her BNP was 875, troponin T 0.17, will get baseline troponin here, EKG did not reveal any ischemic or infarctive change At home she is taking Lasix 80 mg, but patient is endorsing anuria Echo in the morning This most likely related to COVID-19 infection, check inflammatory markers End-stage renal disease Hemodialysis dependent Wednesday Current creatinine 3, no acute indication for dialysis, Kindly consult nephro on Wednesday Her hypotensive episode most likely was due to the effect of dialysis which improved with 1 L fluid resuscitation at the [place] [facility] her lactic acid improved as well from 2-1.6 Full code DVT prophylaxis not needed currently on Eliquis Renal diet PLAN: We will start patient on ceftriaxone and initiate slowly and closely monitor as patient has history of anaphylactic reaction to penicillin. Continue her cardiac medications. Plan to reevaluate patient again with coronary angiogram once COVID-19 infection cleared. Continue Decadron and remdesivir. Attestations Medical Necessity Statement*: Patient with community-acquired pneumonia req uires close ICU monitoring and treatment due to multiple comorbidities including CA and COVID-19 infection and high risk of deterioration. Coding Level of Care Code Acute Drivematic Machine Operator for Chg Fwd Diagnoses New onset a-fib I48.91 Acute respiratory failure with hypoxia J96.01 COVID-19 U07.1 ESRD (end stage renal disease) N18.6 Thrombocytopenia D69.6 Anemia of renal disease N18.9; D63.1 NSTEMI (non-ST elevated myocardial infarction) I21.4 D-dimer, elevated R79.89 COPD (chronic obstructive pulmonary disease) J44.9 Immunosuppression due to chronic steroid use Z79.52 Community acquired pneumonia J18.9
[2020-02-07] MEDS: cefTRIAXone 1,000 MG in sodium chloride 0.9% (plus) 50 ML 100 MG IV (10:36)
[2020-02-07 11:25] LABS: Glucose Point of Care 170 mg/dL (70-110)
[2020-02-07] MEDS: oxyCODONE 5 mg IR Tab/Cap PO (11:29)
--- NOTE | 2020-02-07 13:34 | DCPLANNER ---
Called [facility] to complete IMM with pt. Nurse Tarah stated that pt does not have a phone and no phones in the room but she would go over Medicare rights with pt.
--- NOTE | 2020-02-07 16:00 | PC.OT ---
OT eval attempted. Pt soundly sleeping. Will attempt again tomorrow as able.
[2020-02-07 16:08] LABS: Glucose Point of Care 177 mg/dL (70-110)
[2020-02-07] MEDS: gabapentin 300 mg Capsule PO (17:00)
--- NOTE | 2020-02-07 19:09 | PM.PN ---
Subjective Subjective: Interval history: Stable no overnight event except generalized aches Medications: Reviewed: Yes Vitals/I&O/Wt Last Vital Signs Temp 98.7 F 02/07/20 16:01 Pulse 96 02/07/20 18:01 Resp 13 02/07/20 18:01 BP 102/72 02/07/20 18:01 Pulse Ox 98 02/07/20 18:01 02/07/20 02/07/20 02/07/20 06:59 14:59 22:59 Intake Total 90 / 1010.967 650 / 650 100 / 750 Output Total 0 / 0 0 / 0 Balance 90 / 1010.967 650 / 650 100 / 750 Weight last 48 hrs Weight 172 lb Weight 171 lb 14.4 oz Weight 169 lb Physical Exam Narrative: EXAM NARRATIVE: Examination as per medical hospitalist service. Please note that I have not examined the patient due to Covid Data : 02/07/20 04:00 02/07/20 06:13 Micro: Microbiology 02/07/20 10:55 Gram Stain - Final Sputum - Expectorated Sputum A&P Assessment and plan (1) NSTEMI (non-ST elevated myocardial infarction): Patient is stable patient has non-ST elevation [place] we will treat her medically for now since she is Covid positive. We will proceed with left heart cath once he is Covid negative however if he becomes unstable we can go any time. Status: Acute (2) ESRD (end stage renal disease): Patient is on dialysis Status: Acute (3) New onset a-fib: Stable. Continue current regimen. We will switch patient to oral anticoagulant. Status: Acute (4) COVID-19: As per medicine Status: Acute (5) Pulmonary hypertension: Continue current regimen continue oxygen Status: Acute (6) Hypertension: Well-controlled. Status: Inactive Attestations Medical Necessity Statement*: Require continuation hospitalization for above defined care. Coding Level of Care Code Established Pt Acute Medical Reimbursement Manager for [place] Fwd Patient Type Established History Expanded Problem Focused Exam Expanded Problem Focused Medical Decision Making Moderate Complexity Diagnoses NSTEMI (non-ST elevated myocardial infarction) I21.4 ESRD (end stage renal disease) N18.6 New onset a-fib I48.91 COVID-19 U07.1 Pulmonary hypertension I27.20 Hypertension I10
[2020-02-07 20:08] LABS: Glucose Point of Care 104 mg/dL (70-110)
[2020-02-07] MEDS: mirtazapine 15 mg Tablet PO (21:01)
[2020-02-07] MEDS: atorvastatin 40 mg Tablet 20 MG PO (21:01)
[2020-02-07] MEDS: CLONazepam 1 mg Tablet PO (21:01)
[2020-02-08] VITALS (30 sets, daily range): BP systolic 96–169; BP diastolic 63–96; PULSE 74–118; RESP 8–25; TEMP 36.6–36.9; O2SAT 80–100
[2020-02-08 04:26] LABS: Basophils % 0.1 %; Hematocrit 33.4 % (37.0-47.0); Hemoglobin 9.8 g/dL (11.5-15.3); Lymphocytes # 0.5 10^3/uL (0.8-4.8); Lymphocytes % 5.4 %; Mean Corpuscular HGB Conc 29.3 g/dL (30.0-36.0); Mean Corpuscular Hemoglobin 29.7 pg (28.0-34.0); Mean Corpuscular Volume 101.2 fL (81-99); Monocytes # 0.3 10^3/uL (0.2-0.9); Monocytes % 3.2 %; Neutrophils # 8.24 10^3/uL (1.8-7.7); Neutrophils % 90.6 %; Nucleated Red Blood Cells % 0 %; Platelet Count 99 10^3/cmm (130-400); Red Cell Distribution Width 16.9 % (12.1-15.1); White Blood Count 9.1 10^3/uL (4.0-10.0)
--- NOTE | 2020-02-08 04:59 | PC.NURSE ---
patient oxygen tubing readjusted by nurse
[2020-02-08 06:03] LABS: Alanine Aminotransferase 7 U/L (0-33); Albumin Level 3.1 g/dL (3.5-5.2); Alkaline Phosphatase 102 IU/L (35-105); Anion Gap 13.4 (5-19); Aspartate Amino Transferase 8 U/L (0-32); Blood Urea Nitrogen 30 mg/dL (8-23); Calcium 8.7 mg/dL (8.5-10.5); Carbon Dioxide 30 mmol/L (22-29); Chloride 94 mmol/L (98-107); Globulin 2.1 g/dL (1.3-4.6); Glucose 132 mg/dL (65-115); Osmolality Calculated 284 mOsm/kg (285-295); Potassium 4.4 mmol/L (3.5-5.1); Sodium 133 mmol/L (136-145); Total Bilirubin 0.6 mg/dL (0.15-1.2); Total Protein 5.2 g/dL (6.6-8.7)
[2020-02-08] MEDS: sevelamer 800 mg Tablet PO ×3 (07:51→17:56)
[2020-02-08] MEDS: remdesivir 100 MG in sodium chloride 0.9% (100 ml) 100 ML IV (08:07)
[2020-02-08 08:14] LABS: Glucose Point of Care 111 mg/dL (70-110)
[2020-02-08] MEDS: albuterol 8 gm MDI 2 PUFF INHALATION ×3 (09:11→20:09)
--- NOTE | 2020-02-08 10:15 | P.PN_ITS ---
Subjective Subjective: Interval history: Patient is somnolent this morning. Denies any pain. She saturating in mid 90s on 4 L by nasal cannula. Her platelets continue to decline but albumin improved. Medications: Reviewed: Yes Vitals/I&O/Wt Last Vital Signs Temp 97.8 F 02/08/20 07:01 Pulse 85 02/08/20 09:17 Resp 16 02/08/20 09:13 BP 133/79 02/08/20 09:01 Pulse Ox 97 02/08/20 09:17 02/07/20 02/08/20 02/08/20 22:59 06:59 14:59 Intake Total 100 / 750 Output Total 0 / 0 Balance 100 / 750 Weight last 48 hrs Weight 81.102 kg Weight 78.018 kg Physical Exam Const: COMMON NORMALS: no acute distress and patient oriented x3 Resp: COMMON NORMALS: normal respiratory effort OTHER: Coarse breath sounds throughout. Cardio: RHYTHM: abnormal rhythm irregularly irregular OTHER: Trace lower extremity edema GI: COMMON NORMALS: Normal to inspection, nondistended, normoactive bowel sounds present, Soft to palpation and non-tender PALPATION: Yes Soft to palpation Neuro: COMMON NORMALS: patient oriented x3 and no focal motor deficits Data : 02/08/20 03:46 02/08/20 03:46 Micro: Microbiology 02/07/20 10:55 Gram Stain - Final Sputum - Expectorated Sputum A&P Assessment and plan (1) New onset a-fib: Status: Acute (2) Acute respiratory failure with hypoxia: Status: Acute (3) COVID-19: Status: Acute (4) ESRD (end stage renal disease): Status: Acute (5) Thrombocytopenia: Status: Acute (6) Anemia of renal disease: Status: Acute (7) NSTEMI (non-ST elevated myocardial infarction): Status: Acute (8) D-dimer, elevated: Status: Acute (9) COPD (chronic obstructive pulmonary disease): Status: Acute (10) Immunosuppression due to chronic steroid use: Status: Acute (11) Community acquired pneumonia: Status: Acute Acute respiratory failure with hypoxemia - Etiology multi-factorial - Fluid vs COVID-19 vs COPD - Continue supplemental o2 as needed - Currently on 2L via NC- wean as tolerated - 02/03 Chest x-ray - > Poor inspiratory effort, cardiomegaly however reported no infiltrative process or consolidation - 02/04 -CXR -Probable acute pneumonitis superimposed on chronic underlying interstitial lung disease - D-dimer 2.04 - > CTA Chest PE protocol, No PE, mod emphysema, LLL pneumonia. - Cxr and ABG PRN - Bronchodilatory therapy as noted below COVID 19 Pneumonia - Afebrile, no sig changes on chest x-ray - CT chest noted above. - Continue Decadron 6 mg PO BID x 5 days ( 02/07) then daily x 5 day - > resume daily home prednisone - Continue Remdesivir 200 mg x 1 - > 100mg daily x 4 days ( Last dose on 02/07) - Will complete both treatment plan as pt is high risk for progression of disease - Pro-calcitonin 0.15 - will monitor off abx - Batch testing - Droplet precautions Chronic obstructive pulmonary disease exacerbation - Steroid dependent prior to arrival - Supplemental 02 as noted above - Albuterol HFA 1-2 puff - Spiriva 18 mcg 2 puff inhaled daily - Symbicort 1 puff BID or formulary equivalent - On chronic prednisone 5 mg PO daily home ( on Decadron here ) Non-ST elevation NH - Troponin 0.17 - Repeat 5th gen trop on arrival 177 - 182 -->> 182.7 ( 120 min ) - No reported chest pain - Possibly type 2 due to RVR, COVID -19 - ECHO showed pEF - 55%, RV volume overload, Bi-atrial enlargement, Moderate TONI 1.8, Mod MR, Severe TR - Aspirin 81 mg PO daily - Plavix 300 mg PO x 1 on 02/03 - Will hold off continuing plavix - Lipitor 80 mg PO daily - decrease to 10 PO qhs ( on 5 mg po daily at home) See lipid panel below ( Low - mod intensity statin) - Imdur 15 mg PO BID added - Coreg 6.25 mg PO BID - Discontinue heparin gtt - Cardiology on board - plan for cardiac work up once stable from COVID-19 Newly diagnosed Atrial fibrillation with rapid ventricular response - Likely paroxysmal Afib based on ECHO findings - Coreg 6.25 mg PO BID ( Off Cardizem gtt ) - [id number] -5 HASBLED - 3 - D/C heparin gtt - Started on Eliquis 5 mg PO BID - ECHO noted above - Cardiology consulted End stage renal disease on HD - w/ secondary hyperparathyroidism - Electrolyte management per nephro - Routine //Sat - HD 02/04 - 02/05 ( 2.5L ) - Nephrology consulted - EPO - Renvela 800 mg PO TID meals Anemia of renal disease - Hb stable 9.5 - > 10.6- 10.8 - Epo per nephro - Iron 32,TIBC 214, %sat low Ferritin 1612 - Labs suggestive of acute phase reaction Thrombocytopenia - Plt 111 - 98 - 108 - Repeat CBC in am - No prior h/o HIT - Monitor for bleeding Insulin-dependent diabetes mellitus - Diabetic/renal diet - Sliding scale insulin - A1c of 6.9% Hypertension - Imdur 15 mg PO BID - Coreg 6.35g PO BID ( hold prior to HD ) - Lisinopril 5 mg PO daily ( decrease from 40mg at [facility]) - Holding Clonidine 0.1 BID, Lasix 80 mg daily - Continue to titrate Hyperlipidemia - Lipitor decrease dose 10 mg PO Qhs - LDL goal < 55 due to ACS w/ DM - Total cholesterol 78, LDL of 34, HDL of 33. Neuropathy - Gabapentin 300 mg Po qhs Anxiety/depression - Zoloft 100 mg PO daily - Remeron 15 mg PO qhs - Klonopin 1 mg PO qhs GERD - Protonix 40 mg PO daily DVT ppx f - Eliquis 5 mg PO BID Disposition: Will likely return to [facility] once completion of last dose of remdesivir on 02/07 PLAN: Additional A&P Information Acute hypoxic resp failure secondary to COVID-19 pneumonia Start Decadron and remdesivir Currently doing well on 3 L nasal cannula saturating 92% Procalcitonin not high She is not septic Chest x-ray from the other facility did not report any consolidation Ventolin every 4 as needed New onset A. Fibrillation with acute RVR Heart rate 140s systolic blood pressure 120s, start Cardizem drip start Eliquis discontinue heparin Her BNP was 875, troponin T 0.17, will get baseline troponin here, EKG did not reveal any ischemic or infarctive change At home she is taking Lasix 80 mg, but patient is endorsing anuria Echo in the morning This most likely related to COVID-19 infection, check inflammatory markers End-stage renal disease Hemodialysis dependent Wednesday Current creatinine 3, no acute indication for dialysis, Kindly consult nephro on Wednesday Her hypotensive episode most likely was due to the effect of dialysis which improved with 1 L fluid resuscitation at the [place] [facility] her lactic acid improved as well from 2-1.6 Full code DVT prophylaxis not needed currently on Eliquis Renal diet PLAN: Continue current monitoring and treatment. Monitor CBC. Patient to have dialysis later today. If continues to improve we will likely be able to transfer patient out of ICU tomorrow. Attestations Medical Necessity Statement*: Patient with multiorgan involvement including COVID-19 infection, non-ST elevation NH and acute hypoxic respiratory failure requires close ICU monitoring and treatment. Coding Level of Care Code Acute Agricultural Equipment Test Engineer for g Fwd Diagnoses New onset a-fib I48.91 Acute respiratory failure with hypoxia J96.01 COVID-19 U07.1 ESRD (end stage renal disease) N18.6 Thrombocytopenia D69.6 Anemia of renal disease N18.9; D63.1 NSTEMI (non-ST elevated myocardial infarction) I21.4 D-dimer, elevated R79.89 COPD (chronic obstructive pulmonary disease) J44.9 Immunosuppression due to chronic steroid use Z79.52 Community acquired pneumonia J18.9
[2020-02-08] MEDS: cefTRIAXone 1,000 MG in sodium chloride 0.9% (plus) 50 ML 100 MG IV (10:59)
[2020-02-08] MEDS: heparin, porcine 1,000 unit/mL INJ 10 mL 1000 UNIT IV (11:04)
--- NOTE | 2020-02-08 11:18 | PC.OT ---
OT NOTE: OT EVALUATION ATTEMPTED. PATIENT IS CURRENTLY RECEIVING DIALYSIS. DIALYSIS NURSE REPORTS THAT SHE IS NOT ABLE TO MOVE THE LEFT ARM WHILE RECEIVING DIALYSIS. PATIENT IS ALSO SLEEPING SOUNDLY. WILL ATTEMPT EVALUATION AGAIN TOMORROW.
--- NOTE | 2020-02-08 11:39 | P.PN_ITS ---
Subjective Subjective: Interval history: Seen on dialysis. Tolerating therapy hemodynamically. Rate controlled. On nasal cannula at 4L Some peripheral edema and rales in her lungs but otherwise she is stable Feels weak, somnolent Vitals/I&O/Wt Last Vital Signs Temp 97.8 F 02/08/20 07:01 Pulse 85 02/08/20 09:17 Resp 16 02/08/20 09:13 BP 133/79 02/08/20 09:01 Pulse Ox 97 02/08/20 09:17 02/07/20 02/08/20 02/08/20 22:59 06:59 14:59 Intake Total 100 / 750 1020 / 1020 Output Total 0 / 0 Balance 100 / 750 1020 / 1020 Weight last 48 hrs Weight 81.102 kg Weight 78.018 kg Physical Exam Narrative: EXAM NARRATIVE: Constitutional: Awake, comfortable HEENT: Wet mucosa, no jvp, non icteric Lungs: Bilaterally rales in the bases CVS: S1 S2, no murmurs Abdo: Soft, BS ok Ext 4: 1+ edema, peripheral perfusion with no cyanosis Neurological: Grossly non-focal Data : 02/08/20 03:46 02/08/20 03:46 Micro: Microbiology 02/07/20 10:55 Gram Stain - Final Sputum - Expectorated Sputum A&P Additional A&P Information 1. ESRD - seen and examined on dialysis - 2K, UF 2-3L as tolerated - will evaluate her tomorrow but otherwise plan to continue TTS schedule - dose meds for eGFR < 15 on dialysis 2. Lytes with minor aberration 3. Hemodynamics reviewed and remain stable 4. PNA, Covid positive - s/p Remdesivir and Decadron with Rocephin coverage Alex Gregorio MD [facility] [phone] Attestations Medical Necessity Statement*: mgmt of ESRD Coding Level of Care Code Acute Small Arms Artillery Repairer for Clarence Quinonez
[2020-02-08 11:48] LABS: Glucose Point of Care 162 mg/dL (70-110)
[2020-02-08] MEDS: aspirin 81 mg EC Tablet PO (13:21)
[2020-02-08] MEDS: b-complex-vitamin c Tablet 1 EACH PO (13:21)
[2020-02-08] MEDS: apixaban 5 mg Tablet PO ×2 (13:21→17:57)
[2020-02-08] MEDS: carvedilol 12.5 mg Tablet PO ×2 (13:22→17:57)
[2020-02-08] MEDS: isosorbide mononitrate ER 30 mg Tablet 15 MG PO ×2 (13:23→17:58)
[2020-02-08] MEDS: dexamethasone 4 mg Tablet 6 MG PO ×2 (13:23→17:57)
[2020-02-08] MEDS: lisinopril 5 mg Tablet PO (13:24)
[2020-02-08] MEDS: pantoprazole DR 40 mg Tablet PO (13:25)
[2020-02-08] MEDS: sertraline 100 mg Tablet PO (13:25)
[2020-02-08 17:10] LABS: Glucose Point of Care 264 mg/dL (70-110)
[2020-02-08] MEDS: gabapentin 300 mg Capsule PO (17:57)
--- NOTE | 2020-02-08 18:43 | PC.NURSE ---
0800 assessment patient noted to have unstageable circular small area to left upper gluteal fold that patient denies any pain, tenderness, or injury. 1600. Patients o2 sats ranging in the mid 80's with difficulty redirecting coughing and deep breathing. Patient was educated on poor ventilatory effort and dypsnea. Patient was given an IS to assist with pulmonary toileting. Patient immediately declined and was not open to learning. Charge nurse also went to discuss consequences of not pulmonary toileting with no improved success. Patient remains on 4 liters to discuss with RT any treatments.
--- NOTE | 2020-02-08 18:52 | P.PN_ITS ---
Subjective Subjective: Interval history: No significant event Medications: Reviewed: Yes Vitals/I&O/Wt Last Vital Signs Temp 97.8 F 02/08/20 07:01 Pulse 89 02/08/20 17:00 Resp 25 H 02/08/20 17:00 BP 169/83 02/08/20 13:00 Pulse Ox 80 L 02/08/20 17:00 02/08/20 02/08/20 02/08/20 06:59 14:59 22:59 Intake Total 1620 / 1620 240 / 1860 Balance 1620 / 1620 240 / 1860 Weight last 48 hrs Weight 178 lb 12.8 oz Weight 172 lb Physical Exam Narrative: EXAM NARRATIVE: Examination as per medical hospitalist service. Please note that I have not examined the patient due to Covid Data : 02/08/20 03:46 02/08/20 03:46 Micro: Microbiology 02/07/20 10:55 Gram Stain - Final Sputum - Expectorated Sputum Sputum Culture - Preliminary Gram Negative Rods A&P Assessment and plan (1) NSTEMI (non-ST elevated myocardial infarction): Continue medical management, left heart cath once recovered from Covid Status: Acute (2) ESRD (end stage renal disease): Patient is on dialysis Status: Acute (3) New onset a-fib: Stable. Continue current regimen. We will switch patient to oral anticoagulant. Status: Acute (4) COVID-19: As per medicine Status: Acute (5) Pulmonary hypertension: Continue current regimen continue oxygen Status: Acute (6) Hypertension: Well-controlled. Status: Inactive Attestations Medical Necessity Statement*: Require continuation hospitalization for above defined care. Coding Level of Care Code Established Pt Acute Automotive Engineering Teacher for Chg Fwd Patient Type Established History Expanded Problem Focused Exam Expanded Problem Focused Medical Decision Making Moderate Complexity Diagnoses NSTEMI (non-ST elevated myocardial infarction) I21.4 ESRD (end stage renal disease) N18.6 New onset a-fib I48.91 COVID-19 U07.1 Pulmonary hypertension I27.20 Hypertension I10
[2020-02-08 20:37] LABS: Glucose Point of Care 264 mg/dL (70-110)
[2020-02-08] MEDS: atorvastatin 40 mg Tablet 20 MG PO (20:42)
[2020-02-08] MEDS: mirtazapine 15 mg Tablet PO (20:43)
[2020-02-08] MEDS: CLONazepam 1 mg Tablet PO (21:18)
--- NOTE | 2020-02-08 23:45 | PC.RESP ---
Pt refuses to wear pulse ox on fingur. Currently she has a head probe on but doesn't always read very well and was reading 85%. I checked the pt's oxygen with my portable pulse ox which read 100% I currently have my pulse ox on her so we can get an accurate reading. I will keep it on her until she decides to take it off.
[2020-02-09] VITALS (26 sets, daily range): BP systolic 97–169; BP diastolic 62–116; PULSE 95–125; RESP 12–29; TEMP 36.7–37.1; O2SAT 88–100
[2020-02-09 06:06] LABS: Hematocrit 34.9 % (37.0-47.0); Hemoglobin 10.2 g/dL (11.5-15.3); Lymphocytes # 0.4 10^3/uL (0.8-4.8); Lymphocytes % 4.8 %; Mean Corpuscular HGB Conc 29.2 g/dL (30.0-36.0); Mean Corpuscular Hemoglobin 30.1 pg (28.0-34.0); Mean Corpuscular Volume 102.9 fL (81-99); Mean Platelet Volume 11.6 fL (7.4-10.4); Monocytes # 0.2 10^3/uL (0.2-0.9); Monocytes % 2.4 %; Neutrophils # 8.36 10^3/uL (1.8-7.7); Nucleated Red Blood Cells % 0 %; Platelet Count 112 10^3/cmm (130-400); Red Blood Count 3.39 10^6/uL (4.1-5.3); Red Cell Distribution Width 16.8 % (12.1-15.1); White Blood Count 9.1 10^3/uL (4.0-10.0)
[2020-02-09 06:20] LABS: Alanine Aminotransferase 9 U/L (0-33); Albumin Level 3.3 g/dL (3.5-5.2); Alkaline Phosphatase 116 IU/L (35-105); Aspartate Amino Transferase 10 U/L (0-32); Blood Urea Nitrogen 23 mg/dL (8-23); Calcium 8.5 mg/dL (8.5-10.5); Carbon Dioxide 29 mmol/L (22-29); Chloride 95 mmol/L (98-107); Glucose 166 mg/dL (65-115); Osmolality Calculated 285 mOsm/kg (285-295); Sodium 134 mmol/L (136-145); Total Bilirubin 0.5 mg/dL (0.15-1.2); Total Protein 5.3 g/dL (6.6-8.7)
[2020-02-09 07:27] LABS: Glucose Point of Care 191 mg/dL (70-110)
[2020-02-09] MEDS: carvedilol 12.5 mg Tablet PO ×3 (08:05→17:36)
[2020-02-09] MEDS: pantoprazole DR 40 mg Tablet PO (08:05)
[2020-02-09] MEDS: apixaban 5 mg Tablet PO ×2 (08:05→17:35)
[2020-02-09] MEDS: sevelamer 800 mg Tablet PO ×3 (08:05→17:37)
[2020-02-09] MEDS: isosorbide mononitrate ER 30 mg Tablet 15 MG PO ×2 (08:05→17:36)
[2020-02-09] MEDS: b-complex-vitamin c Tablet 1 EACH PO (08:05)
[2020-02-09] MEDS: sertraline 100 mg Tablet PO (08:05)
[2020-02-09] MEDS: lisinopril 5 mg Tablet PO (08:05)
[2020-02-09] MEDS: aspirin 81 mg EC Tablet PO (08:06)
[2020-02-09] MEDS: dexamethasone 4 mg Tablet 6 MG PO ×2 (08:06→17:36)
[2020-02-09] MEDS: cloNIDine 0.1 mg Tablet PO (08:18)
--- NOTE | 2020-02-09 08:48 | PC.SOCIAL ---
IMM Update Pg.2 of IMM updated. Copy given to nursing staff to give to patient.
--- NOTE | 2020-02-09 10:33 | P.PN_ITS ---
Subjective Subjective: Interval history: No new issues. She feels well with no new events since yesterday. She tolerated dialysis well yesterday. Hemodynamics remain stable No uremic Sx Medications: Reviewed: Yes Vitals/I&O/Wt Last Vital Signs Temp 98.8 F 02/09/20 10:04 Pulse 117 H 02/09/20 08:00 Resp 29 H 02/09/20 08:00 BP 129/82 02/09/20 08:18 Pulse Ox 100 02/09/20 07:01 02/08/20 02/09/20 02/09/20 22:59 06:59 14:59 Intake Total 390 2009 300 / 2310 Balance 390 2009 300 / 2310 Weight last 48 hrs Weight 81.675 kg Weight 81.102 kg Physical Exam Narrative: EXAM NARRATIVE: Constitutional: Awake, comfortable HEENT: Wet mucosa, no jvp, non icteric Lungs: Bilaterally rales in the bases CVS: S1 S2, no murmurs Abdo: Soft, BS ok Ext 4: 1+ edema, peripheral perfusion with no cyanosis Neurological: Grossly non-focal Data : 02/09/20 04:15 02/09/20 04:15 Micro: Microbiology 02/07/20 10:55 Gram Stain - Final Sputum - Expectorated Sputum Sputum Culture - Preliminary Gram Negative Rods A&P Additional A&P Information 1. ESRD - likely DC today but if she is here tomorrow will dialyze her - 2K, UF 2-3L - dose meds for eGFR < 15 on dialysis 2. Lytes with minor aberration 3. Hemodynamics reviewed and remain stable 4. PNA, Covid positive - s/p Remdesivir and Decadron with Rocephin coverage - likely DC today Alex Gregorio MD [facility] [phone] Attestations Medical Necessity Statement*: Eval for ESRD mgmt Coding Level of Care Code Acute Computational Mathematician for Clarence Fwja
[2020-02-09 11:29] LABS: Glucose Point of Care 319 mg/dL (70-110)
[2020-02-09] MEDS: cefTRIAXone 1,000 MG in sodium chloride 0.9% (plus) 50 ML 100 MG IV (11:33)
--- NOTE | 2020-02-09 14:30 | PM.DCS ---
Discharge Providers Date of Admission: 02/04/20 13:52 Date of Discharge: February 09, 2020 Attending Provider at Admission: Brittany Hunt MD Attending Provider at Discharge: Felipe Wan MD Diagnoses at Discharge Discharge Diagnosis (1) NSTEMI (non-ST elevated myocardial infarction): Status: Acute (2) ESRD (end stage renal disease): Status: Acute (3) New onset a-fib: Status: Acute (4) COVID-19: Status: Acute (5) Pulmonary hypertension: Status: Acute (6) Thrombocytopenia: Status: Acute Permanent problem details: Likely related to infection versus chronic. Hospital Course Hospital Course 69-year-old female with a past medical history significant for hypertension, hyperlipidemia, anxiety, depression, gastroesophageal reflux disease, insulin-dependent diabetes mellitus, end-stage renal disease on dialysis via left arm fistula, and chronic obstructive pulmonary disease who was initially seen at [facility] with increasing shortness of breath. Symptoms at initially start dialysis on wednesday during which time she was only able to complete about 1.5hr due to hypotension. She was instructed to to go ER however had continued to refused until worsening respiratory distress upon return to [place] ( [facility] [place] [facility]) Initial vital signs yesterday showed blood pressure of 90/46, heart rate of 129, respiratory rate of 18 and a temperature of 97.8 Laboratory workup showed a WBC of 6.0, hemoglobin of 10.6, hematocrit 32.9 and a platelet count of 120. sodium 134, potassium 3.8, chloride 96, bicarb 30, BUN 14 and creatinine of 3.0. AST of 20, ALT of 13 an alkaline phosphatase of 147. proBNP of 854. lactic acid of 2.0 -1.6.mg 2.0. Procalcitonin was 0.15. INR 1.6. Urinalysis showed trace leukocyte esterase, 3 to 4 wbc's and no bacteria. Chest x-ray was performed which showed low lung volumes, bronchovascular crowding due to low lung volumes, elevated right hemidiaphragm and cardiomegaly. CoV-19 Ag test was positive. While in ER she was noted to have newly found atrial fibrillation with rapid ventricular response for which she was started on cardizem gtt. She was placed on 2 L of O2 via nasal cannula. She was given a L bolus of normal saline prior to transfer to [facility]. Additionally was noted to have a troponin of 0.7. She was also started on heparin gtt. Repeat laboratory workup on arrival showed a WBC of 6.7, hemoglobin 9.5, hematocrit of 32.9 and a platelet count of 111. sodium 131, potassium 4.2, chloride 93, bicarb 27, BUN 16 and creatinine of 3.2. Initial troponin T baseline of 177 -> 182- > 182.7. D-dimer was also elevated at 2.04. Patient on transfer was also given aspirin 81 mg PO daily, Loaded with plavix 300 mg Po x 1, lipitor 80 mg PO daily, continued on cardizem gtt and heparin gtt. Additionally was started on decadron 6 mg PO daily and Remdesivir 200 mg IV x 1 followed by 100 mg IV daily x 4 days. Upon admission a CTA of chest was performed which did showed moderate emphysema, LLL infiltrates suggestive of pneumonia with out any evidence of PE. She was continued on bronchodilators treatments and inhaled steroids. Since arrival her respiratory status remained stable at 2L of o2 via NC. Remained afebile. Procalcionin was noted to be 0.15. Low suspicion for secondary bacterial infection and thus antibiotics were not started. She remained afebrile. Cardiology was consulted for atrial fibrillation with rvr and nstmi. ECHO performed showed pEF - 55%, RV volume overload, Biatrial enlargement, Moderate TONI 1.8, Mod MR, Severe TR. Was continued on aspirin 81 mg PO daily. Intially on high dose statin with Lipitor 80 mg however lipid panel showed Total cholesterol 78, LDL of 34, HDL of 33. This was then decreased to 20 mg PO daily. Patient was no longer hypotensive and thus Imdur 30 mg PO BID, lisinopril 5 mg PO daily and Coreg 6.25 mg PO BID was started. Remained in atrial fib with rate which had improved. CHADVasc score was noted to be 5 with HASBLED score of 3. Heparin gtt was discontinued. Case was discussed with cardiology and due to acute covid19 infection with active treatment with remdesivir and decadron plan was for cardiac catheterization outpatient. Nephrology was also consulted and continued HD treatments on 02/04 and again on 02/05 and 02/07. This morning patient denied any shortness of breath or chest pain. She is saturating in the low 90s on 2 L by nasal cannula. Her oral intake and appetite are very good. Patient will be continued on furosemide daily and hemodialysis. Patient's medications were adjusted and Coreg was increased. Dr. Swan is planning to bring patient back for coronary angiogram when Covid infection is over. Physical Exam Narrative: EXAM NARRATIVE: Patient's heart is irregularly irregular and lungs are clear. Coarse sounds are completely gone. Lower extremities show trace edema. Discharge Data Data Completed and Pending: Completed Studies During Hospitalization Category Date Time Status CTA chest [CT ang io chest PE protcl [id number]] Routine Cat Scan 02/04/20 13:50 Completed XR chest 1V marta ble [id number] Routine Exams 02/05/20 07:00 Completed CV echo complete* [id number] Routine Ultrasound 02/04/20 00:48 Completed Pending at discharge Category Date Time Status Clostridioides Di fficile PCR Routin e Lab 02/08/20 14:37 Received Complete Blood Co unt w/Auto AM LABS Lab 02/10/20 04:00 Ordered Comprehensive Met abolic Panel AM LA BS Lab 02/10/20 04:00 Ordered Magnesium AM LABS Lab 02/10/20 04:00 Ordered Labs from last 24 hours 02/09/20 02/09/20 02/09/20 11:18 07:18 04:15 WBC RBC Hgb Hct MCV MCH MCHC RDW Plt Count MPV Neut % (Auto) Lymph % (Auto) [place] % (Auto) Eos % (Auto) Baso % (Auto) Neut # (Auto) Lymph # (Auto) [place] # (Auto) Eos # (Auto) Baso # (Auto) Nucleated RBC % (a uto) Nucleated RBCs # Sodium 134 L Potassium 5.0 Chloride 95 L Carbon Dioxide 29 Anion Gap 15.0 BUN 23 Creatinine 2.4 H GFR Calculation 20.0 L Glucose 166 H POC Glucose 319 H 191 Calculated Osmolal ity 285 Calcium 8.5 Magnesium 2.0 Total Bilirubin 0.5 AST 10 ALT 9 Alkaline Phosphata se 116 H Total Protein 5.3 L Albumin 3.3 L Globulin 2.0 02/09/20 02/08/20 02/08/20 04:15 20:35 17:09 WBC 9.1 RBC 3.39 L Hgb 10.2 L Hct 34.9 L MCV 102.9 H MCH 30.1 MCHC 29.2 L RDW 16.8 H Plt Count 112 L MPV 11.6 H Neut % (Auto) 92.0 Lymph % (Auto) 4.8 [place] % (Auto) 2.4 Eos % (Auto) 0.0 Baso % (Auto) 0.0 Neut # (Auto) 8.36 H Lymph # (Auto) 0.4 L [place] # (Auto) 0.2 Eos # (Auto) 0.0 Baso # (Auto) 0.0 Nucleated RBC % (a uto) 0 Nucleated RBCs # 0.0 Sodium Potassium Chloride Carbon Dioxide Anion Gap BUN Creatinine GFR Calculation Glucose POC Glucose 264 264 Calculated Osmolal ity Calcium Magnesium Total Bilirubin AST ALT Alkaline Phosphata se Total Protein Albumin Globulin Vitals: Last Vital Signs Temp 98.8 F 02/09/20 10:04 Pulse 115 H 02/09/20 12:00 Resp 29 H 02/09/20 12:00 BP 159/90 02/09/20 12:00 Pulse Ox 90 02/09/20 12:00 Discharge Plan Discharge Patient Disposition: Xfer SNF Condition: Stable Prescriptions: New lisinopril 5 mg Tablet 5 mg PO DAILY Qty: 30 RF: 0 isosorbide mononitrate 20 mg tablet 10 mg PO BID Qty: 60 RF: 0 dexamethasone 4 mg Tablet 6 mg PO DAILY Qty: 5 RF: 0 Eliquis 5 mg Tablet 5 mg PO BID Qty: 60 RF: 0 carvedilol 12.5 mg Tablet 18.75 mg PO BID Qty: 120 RF: 0 Continued clonidine HCl 0.1 mg Tablet 0.1 mg PO BID RF: 0 Imodium 2 mg Capsule 2 mg PO Q6H PRN (Reason: Diarrhea) RF: 0 atorvastatin 10 mg Tablet 5 mg PO QPM RF: 0 Senokot-S 8.6-50 mg Tablet 1 tab-cap PO BID PRN (Reason: Constipation) RF: 0 Zoloft 100 mg Tablet 100 mg PO DAILY RF: 0 prednisone 5 mg Tablet 5 mg PO DAILY RF: 0 clonazepam 1 mg Tablet 1 mg PO BEDTIME RF: 0 omeprazole 40 mg Capsule,Delayed Release(Dr/Ec) 40 mg PO DAILY RF: 0 furosemide 80 mg Tablet 80 mg PO DAILY RF: 0 hydrocodone-acetaminophen 7.5-325 mg Tablet 1 tab PO Q6H PRN (Reason: pain) RF: 0 Phenergan 25 mg/mL Solution 25 mg IM Q6H PRN (Reason: Nausea) RF: 0 Neurontin 300 mg Capsule 300 mg PO BEDTIME RF: 0 aspirin 81 mg Tablet,Chewable 81 mg PO DAILY RF: 0 Singulair 10 mg Tablet 10 mg PO BEDTIME RF: 0 Viky-Alethea 0.8 mg Tablet 1 tab PO BEDTIME RF: 0 Remeron 15 mg Tablet 15 mg PO BEDTIME RF: 0 ProAir HFA 90 mcg/actuation Hfa Aerosol Inhaler 2 puff INHALATION QID RF: 0 Spiriva with HandiHaler 18 mcg Capsule, W/Inhalation Device 1 cap INHALATION DAILY RF: 0 Symbicort 160-4.5 mcg/actuation Hfa Aerosol Inhaler 2 puff INHALATION BID RF: 0 Renvela 800 mg Tablet 1,600 mg PO TIDWM RF: 0 melatonin 5 mg Tablet 5 mg PO BEDTIME RF: 0 Mucinex 600 mg Tablet Extended Release 12hr 600 mg PO BID RF: 0 Discontinued Coreg 6.25 mg Tablet 6.25 mg PO BID RF: 0 lisinopril 40 mg Tablet 40 mg PO DAILY RF: 0 Discharge Orders: Discharge Order (Routine); Ordered 02/09/20 Ordered By: Felipe Wan Referrals: Severino Abrams MD [Physician] - 1 week Brittany Swan MD [Physician] - 2 weeks Discharge Diet: Usual diet Discharge Activity: Increase activity as tolerated Activity Restrictions/Additional Instructions: Please call your doctor or present to emergency department if your condition worsens or you develop diarrhea, lightheadedness, fatigue or see blood in your stool or black stool. Please keep blood pressure and heart rate log 3 times daily to present to primary care physician next visit for medication adjustment. Patient to continue using 2 L of oxygen continuously to be adjusted for oxygen saturation more than 92%. Discharge Attestations Time Spent in Discharge Care*: greater than 30 min Quality Metrics Clinical Quality Measures During this hospital stay, did patient experience: AMI Clinical Trial Participant: No Contraindication to aspirin (AMI): Aspirin given Contraindication to statin: Statin prescribed Coding Level of Care Code Acute Coordinator Of Online Programs for Clarence Fwaj Diagnoses NSTEMI (non-ST elevated myocardial infarction) I21.4 ESRD (end stage renal disease) N18.6 New onset a-fib I48.91 COVID-19 U07.1 Pulmonary hypertension I27.20 Thrombocytopenia D69.6
--- NOTE | 2020-02-09 15:21 | PC.OT ---
OT EVALUATION HELD PATIENT IS SCHEDULED FOR DISCHARGE TODAY.
[2020-02-09] MEDS: metoprolol tartrate 1 mg/1 mL SDV 5 mL 5 MG IV (16:33)
[2020-02-09] MEDS: albuterol 8 gm MDI 2 PUFF INHALATION (16:55)
--- NOTE | 2020-02-09 17:10 | PC.NURSE ---
PRN medication given for heart rate of 102. MD de la cruz.
[2020-02-09] MEDS: gabapentin 300 mg Capsule PO (17:35)
[2020-02-09 17:46] LABS: Glucose Point of Care 492 mg/dL (70-110)
--- NOTE | 2020-02-09 20:01 | PM.PN ---
Subjective Subjective: Interval history: Stable denies any complaint. Medications: Reviewed: Yes Vitals/I&O/Wt Last Vital Signs Temp 98.8 F 02/09/20 10:04 Pulse 95 02/09/20 16:56 Resp 18 02/09/20 16:56 BP 129/72 02/09/20 16:00 Pulse Ox 98 02/09/20 16:56 02/09/20 02/09/20 02/09/20 06:59 14:59 22:59 Intake Total 300 / 2360 50 / 50 Balance 300 / 2360 50 / 50 Weight last 48 hrs Weight 180 lb 1 oz Weight 178 lb 12.8 oz Physical Exam Narrative: EXAM NARRATIVE: Examination as per medical hospitalist service. Please note that I have not examined the patient due to Covid Data : 02/09/20 04:15 02/09/20 04:15 Micro: Microbiology 02/07/20 10:55 Gram Stain - Final Sputum - Expectorated Sputum Sputum Culture - Final Klebsiella oxytoca A&P Assessment and plan (1) NSTEMI (non-ST elevated myocardial infarction): Continue same management left heart cath as an outpatient once recovered from Covid Status: Acute (2) ESRD (end stage renal disease): As per nephrology Status: Acute (3) New onset a-fib: Stable continue anticoagulation, continue with wilner yvette Status: Acute (4) COVID-19: As per medicine Status: Acute (5) Pulmonary hypertension: Continue current regimen continue oxygen Status: Acute (6) Hypertension: Well-controlled. Status: Inactive Attestations Medical Necessity Statement*: Require continuation hospitalization for above defined care Coding Level of Care Code Established Pt Acute Graduate Studies Dean for Chg Fwd Patient Type Established History Expanded Problem Focused Exam Expanded Problem Focused Medical Decision Making Moderate Complexity Diagnoses NSTEMI (non-ST elevated myocardial infarction) I21.4 ESRD (end stage renal disease) N18.6 New onset a-fib I48.91 COVID-19 U07.1 Pulmonary hypertension I27.20 Hypertension I10
[2020-02-09 21:48] LABS: Glucose Point of Care 148 mg/dL (70-110)
[2020-02-09] MEDS: atorvastatin 40 mg Tablet 20 MG PO (21:57)
[2020-02-09] MEDS: mirtazapine 15 mg Tablet PO (21:57)
[2020-02-10] VITALS (9 sets, daily range): BP systolic 121–147; BP diastolic 84–101; PULSE 85–109; RESP 12–25; TEMP 36.8; O2SAT 97–98
[2020-02-10] MEDS: sevelamer 800 mg Tablet PO ×2 (06:13→11:41)
[2020-02-10 07:32] LABS: Basophils % 0.1 %; Hematocrit 36.8 % (37.0-47.0); Hemoglobin 10.6 g/dL (11.5-15.3); Lymphocytes # 0.6 10^3/uL (0.8-4.8); Lymphocytes % 7.9 %; Mean Corpuscular HGB Conc 28.8 g/dL (30.0-36.0); Mean Corpuscular Hemoglobin 29.8 pg (28.0-34.0); Mean Corpuscular Volume 103.4 fL (81-99); Mean Platelet Volume 11.3 fL (7.4-10.4); Monocytes # 0.2 10^3/uL (0.2-0.9); Monocytes % 2.8 %; Neutrophils # 6.59 10^3/uL (1.8-7.7); Neutrophils % 88.4 %; Nucleated Red Blood Cells % 0 %; Platelet Count 132 10^3/cmm (130-400); Red Blood Count 3.56 10^6/uL (4.1-5.3); Red Cell Distribution Width 16.6 % (12.1-15.1); White Blood Count 7.5 10^3/uL (4.0-10.0)
[2020-02-10 07:34] LABS: Glucose Point of Care 135 mg/dL (70-110)
[2020-02-10 07:49] LABS: Alanine Aminotransferase 9 U/L (0-33); Albumin Level 3.5 g/dL (3.5-5.2); Alkaline Phosphatase 106 IU/L (35-105); Anion Gap 17.5 (5-19); Aspartate Amino Transferase 9 U/L (0-32); Blood Urea Nitrogen 42 mg/dL (8-23); Calcium 9.1 mg/dL (8.5-10.5); Carbon Dioxide 27 mmol/L (22-29); Chloride 93 mmol/L (98-107); Globulin 2.1 g/dL (1.3-4.6); Glomerular Filtration Rate 13.9 mL/min (90-130); Glucose 130 mg/dL (65-115); Magnesium 2.3 mg/dL (1.7-2.3); Osmolality Calculated 286 mOsm/kg (285-295); Potassium 5.5 mmol/L (3.5-5.1); Sodium 132 mmol/L (136-145); Total Bilirubin 0.6 mg/dL (0.15-1.2); Total Protein 5.6 g/dL (6.6-8.7)
[2020-02-10] MEDS: cloNIDine 0.1 mg Tablet PO (08:07)
[2020-02-10] MEDS: carvedilol 25 mg Tablet PO (08:08)
[2020-02-10] MEDS: sertraline 100 mg Tablet PO (08:08)
[2020-02-10] MEDS: isosorbide mononitrate ER 30 mg Tablet 15 MG PO (08:08)
[2020-02-10] MEDS: b-complex-vitamin c Tablet 1 EACH PO (08:09)
[2020-02-10] MEDS: lisinopril 5 mg Tablet PO (08:10)
[2020-02-10] MEDS: dexamethasone 4 mg Tablet 6 MG PO (08:16)
[2020-02-10] MEDS: apixaban 5 mg Tablet PO (08:16)
[2020-02-10] MEDS: aspirin 81 mg EC Tablet PO (08:16)
--- NOTE | 2020-02-10 08:52 | P.PN_ITS ---
Subjective Subjective: Interval history: Patient reports feeling back to her normal baseline. She wants to go back to her facility. She denies any shortness of breath or chest pain this morning. Reports feeling well. She was not transferred yesterday because of transportation issues. Medications: Reviewed: Yes Vitals/I&O/Wt Last Vital Signs Temp 98.8 F 02/09/20 10:04 Pulse 97 02/10/20 04:00 Resp 14 02/10/20 04:00 BP 145/101 02/10/20 08:07 Pulse Ox 97 02/10/20 04:49 02/09/20 02/10/20 02/10/20 22:59 06:59 14:59 Output Total 700 / 700 Balance -700 / -650 Weight last 48 hrs Weight 83.007 kg Weight 81.675 kg Physical Exam 2 Narrative: EXAM NARRATIVE: Patient's heart is irregularly irregular and lungs are clear. Coarse sounds are completely gone. Lower extremities show trace edema. Data : 02/10/20 04:15 02/10/20 04:15 Micro: Microbiology 02/07/20 10:55 Gram Stain - Final Sputum - Expectorated Sputum Sputum Culture - Final Klebsiella oxytoca A&P Assessment and plan (1) NSTEMI (non-ST elevated myocardial infarction): Status: Acute (2) ESRD (end stage renal disease): Status: Acute (3) New onset a-fib: Status: Acute (4) COVID-19: Status: Acute (5) Pulmonary hypertension: Status: Acute (6) Thrombocytopenia: Status: Acute Acute respiratory failure with hypoxemia - Etiology multi-factorial - Fluid vs COVID-19 vs COPD - Continue supplemental o2 as needed - Currently on 2L via NC- wean as tolerated - 02/03 Chest x-ray - > Poor inspiratory effort, cardiomegaly however reported no infiltrative process or consolidation - 02/04 -CXR -Probable acute pneumonitis superimposed on chronic underlying interstitial lung disease - D-dimer 2.04 - > CTA Chest PE protocol, No PE, mod emphysema, LLL pneumonia. - Cxr and ABG PRN - Bronchodilatory therapy as noted below COVID 19 Pneumonia - Afebrile, no sig changes on chest x-ray - CT chest noted above. - Continue Decadron 6 mg PO BID x 5 days ( 02/07) then daily x 5 day - > resume daily home prednisone - Continue Remdesivir 200 mg x 1 - > 100mg daily x 4 days ( Last dose on 02/07) - Will complete both treatment plan as pt is high risk for progression of disease - Pro-calcitonin 0.15 - will monitor off abx - Batch testing - Droplet precautions Chronic obstructive pulmonary disease exacerbation - Steroid dependent prior to arrival - Supplemental 02 as noted above - Albuterol HFA 1-2 puff - Spiriva 18 mcg 2 puff inhaled daily - Symbicort 1 puff BID or formulary equivalent - On chronic prednisone 5 mg PO daily home ( on Decadron here ) Non-ST elevation MS - Troponin 0.17 - Repeat 5th gen trop on arrival 177 - 182 -->> 182.7 ( 120 min ) - No reported chest pain - Possibly type 2 due to RVR, COVID -19 - ECHO showed pEF - 55%, RV volume overload, Bi-atrial enlargement, Moderate TONI 1.8, Mod MR, Severe TR - Aspirin 81 mg PO daily - Plavix 300 mg PO x 1 on 02/03 - Will hold off continuing plavix - Lipitor 80 mg PO daily - decrease to 10 PO qhs ( on 5 mg po daily at home) See lipid panel below ( Low - mod intensity statin) - Imdur 15 mg PO BID added - Coreg 6.25 mg PO BID - Discontinue heparin gtt - Cardiology on board - plan for cardiac work up once stable from COVID-19 Newly diagnosed Atrial fibrillation with rapid ventricular response - Likely paroxysmal Afib based on ECHO findings - Coreg 6.25 mg PO BID ( Off Cardizem gtt ) - [id number] HASBLED - 3 - D/C heparin gtt - Started on Eliquis 5 mg PO BID - ECHO noted above - Cardiology consulted End stage renal disease on HD - w/ secondary hyperparathyroidism - Electrolyte management per nephro - Routine //Sat - HD 02/04 - 02/05 ( 2.5L ) - Nephrology consulted - EPO - Renvela 800 mg PO TID meals Anemia of renal disease - Hb stable 9.5 - > 10.6- 10.8 - Epo per nephro - Iron 32,TIBC 214, %sat low Ferritin 1612 - Labs suggestive of acute phase reaction Thrombocytopenia - Plt 111 - 98 - 108 - Repeat CBC in am - No prior h/o HIT - Monitor for bleeding Insulin-dependent diabetes mellitus - Diabetic/renal diet - Sliding scale insulin - A1c of 6.9% Hypertension - Imdur 15 mg PO BID - Coreg 6.35g PO BID ( hold prior to HD ) - Lisinopril 5 mg PO daily ( decrease from 40mg at NH) - Holding Clonidine 0.1 BID, Lasix 80 mg daily - Continue to titrate Hyperlipidemia - Lipitor decrease dose 10 mg PO Qhs - LDL goal < 55 due to ACS w/ DM - Total cholesterol 78, LDL of 34, HDL of 33. Neuropathy - Gabapentin 300 mg Po qhs Anxiety/depression - Zoloft 100 mg PO daily - Remeron 15 mg PO qhs - Klonopin 1 mg PO qhs GERD - Protonix 40 mg PO daily DVT ppx f - Eliquis 5 mg PO BID Disposition: [facility] completion of last dose of remdesivir on 02/07 PLAN: Additional A&P Information Acute hypoxic resp failure secondary to COVID-19 pneumonia Start Decadron and remdesivir Currently doing well on 3 L nasal cannula saturating 92% Procalcitonin not high She is not septic Chest x-ray from the other facility did not report any consolidation Ventolin every 4 as needed New onset A. Fibrillation with acute RVR Heart rate 140s systolic blood pressure 120s, start Cardizem drip start Eliquis discontinue heparin Her BNP was 875, troponin T 0.17, will get baseline troponin here, EKG did not reveal any ischemic or infarctive change At home she is taking Lasix 80 mg, but patient is endorsing anuria Echo in the morning This most likely related to COVID-19 infection, check inflammatory markers End-stage renal disease Hemodialysis dependent Wednesday Current creatinine 3, no acute indication for dialysis, Kindly consult nephro on Wednesday Her hypotensive episode most likely was due to the effect of dialysis which improved with 1 L fluid resuscitation at the [place] [facility] her lactic acid improved as well from 2-1.6 Full code DVT prophylaxis not needed currently on Eliquis Renal diet PLAN: Patient will be dialyzed later today after which she will be dismissed back to her facility. Please refer to DC summary done yesterday. Attestations Medical Necessity Statement*: Patient will be dismissed back to nursing facility after dialysis. Coding Level of Care Code Acute Machine Shorthand Reporter for g Fwd Diagnoses NSTEMI (non-ST elevated myocardial infarction) I21.4 ESRD (end stage renal disease) N18.6 New onset a-fib I48.91 COVID-19 U07.1 Pulmonary hypertension I27.20 Thrombocytopenia D69.6
[2020-02-10] MEDS: albuterol 8 gm MDI 2 PUFF INHALATION (09:00)
[2020-02-10 11:31] LABS: Glucose Point of Care 223 mg/dL (70-110)
== END 2020-02-10 12:27 | disposition skilled nursing facility (03) | DRG 177 ==
LOC: CSU 02-05 11:57 → ICU 02-06 18:39
PROVIDERS: Hospitalist; Internal Medicine; Admitting Provider Internal Medicine; Visit Provider Internal Medicine
DX: U07.1 COVID-19 (principal); J12.89 Other viral pneumonia; I21.A1 Myocardial infarction type 2; N18.6 End stage renal disease; J96.01 Acute respiratory failure with hypoxia; I12.0 Hypertensive chronic kidney disease with stage 5 chronic kidney disease or end stage renal disease; D84.821 Immunodeficiency due to drugs; I95.9 Hypotension, unspecified; E11.22 Type 2 diabetes mellitus with diabetic chronic kidney disease; Z99.2 Dependence on renal dialysis; I48.91 Unspecified atrial fibrillation; J43.9 Emphysema, unspecified; F17.210 Nicotine dependence, cigarettes, uncomplicated; E78.5 Hyperlipidemia, unspecified; F41.8 Other specified anxiety disorders; K21.9 Gastro-esophageal reflux disease without esophagitis; D69.6 Thrombocytopenia, unspecified; D63.1 Anemia in chronic kidney disease; T38.0X5A Adverse effect of glucocorticoids and synthetic analogues, initial encounter; Z79.52 Long term (current) use of systemic steroids; E11.42 Type 2 diabetes mellitus with diabetic polyneuropathy; Z79.82 Long term (current) use of aspirin; G89.29 Other chronic pain; I27.20 Pulmonary hypertension, unspecified; I25.10 Atherosclerotic heart disease of native coronary artery without angina pectoris; Z95.5 Presence of coronary angioplasty implant and graft
CPT/HCPCS: 12345; 36415; 36416; 71045; 71275; 80048; 80053; 80061; 82728; 82962; 83036; 83540; 83550; 83735; 84100; 84443; 84484; 85025; 85378; 85730; 86140; 86803; 87070; 87077; 87186; 87205; 87340; 87493; 90935; 93005; 93306; 94640; 96372; 97110; 97161; G0378; G0379; J0696; J1644; J1815; J3490; J3535; J8540; Q3014; Q4081; Q9967